=== PATIENT | female | born 2000 | race Caucasian/White ===

== ENCOUNTER 2022-02-27 10:02 | Emergency (ER) | payer OTHER, SELFPAY ==
[2022-02-27 10:08] VITALS: BP 112/63; PULSE 80; RESP 16; TEMP 36.7; O2SAT 100
--- NOTE | 2022-02-27 10:48 | ED.EAR ---
HPI - Ear Problem General Chief complaint: Ear Stated complaint: Ear Problem Source: patient Mode of arrival: ambulatory Limitations: no limitations History of Present Illness HPI Narrative: Presents for evaluation of bilateral ear pain. She states eight days ago she had a fever and generally was not feeling well. She went to [facility] seven days ago and tested positive for COVID. She states that she had not received COVID vaccination. She developed bilateral ear pain two days ago and has noted a small amount of sanguinous drainage from the left ear. Denies tinnitus, hearing loss. She states she had recurrent ear infections in childhood and had tympanostomy tubes placed. She states she has a left sided TM perforation. She states her symptoms associated with COVID are improving. No additional complaints or concerns. Related Data Allergies Allergy/AdvReac Type Severity Reaction Status Date / Time Penicillins Allergy Unknown MOTHER Verified 02/27/22 10:25 DOESN'T REMEMBER Review of Systems Review of Systems: CONSTITUTIONAL: Denies fever, chills, or sweats. EYES: Denies visual changes, redness, or discharge. ENT: Reports bilateral otalgia, left greater than right. Reports small amount of sanguinous drainage from left ear. Denies rhinorrhea, congestion, sore throat CARDIOVASCULAR: Denies chest pain, palpitations, or edema. RESPIRATORY: Reports occasional cough. Denies dyspnea. GASTROINTESTINAL: Denies abdominal pain, nausea, vomiting, or diarrhea. GENITOURINARY: Denies dysuria or hematuria. SKIN: Denies rash or itching. MUSCULOSKELETAL: Denies back pain, joint pain, or myalgia. NEUROLOGIC: Denies headache, numbness, dizziness, or weakness. PSYCHIATRIC: Denies anxiety or depression. [facility] Past Medical History Medical History Recurrent otitis media Surgical History Surgical History History of tympanostomy tube placement Family History Family History Mother Asthma Depression Heart disease Sibling Asthma Depression Grandparent Depression Cancer Grandparent Diabetes mellitus Social History Social History Alcohol intake: never Substance use: current Substance use type: marijuana Additional living arrangements comments: Lives with boyfriend and his familt Gender identity (if verbalized by the patient): Female Sexual Orientation (if Verbalized by the Patient): Straight or Heterosexual Spiritual care concerns: No Exam Narrative: GENERAL: Well-appearing, well-nourished, and in no acute distress. HEAD: Normocephalic, atraumatic. EYES: PERRLA and EOMI. ENT: Nares clear, no rhinorrhea or epistaxis. Mucous membranes moist. Oropharynx without tonsillar hypertrophy exudate or other lesions. Scarring noted to the right TM. Left TM is perforated with small amount of serous drainage noted NECK: Supple. No adenopathy or masses. No carotid bruits or JVD CHEST: Clear to auscultation. Cough present on exam. No respiratory distress. No wheezes rales or rhonchi HEART: Regular rate and rhythm. No murmur heard. Normal peripheral pulses. ABDOMEN: Soft, nontender, nondistended, normal active bowel sounds. EXTREMITIES: Normal range of motion. No edema. SKIN: Warm, dry, no rash. NEURO: No focal deficits. Alert and oriented x3. PSYCH: Normal mood and affect. Course Course Emergency Course: This is a 21-year-old female who present with complaints of bilateral ear pain and drainage from left ear. She has a tympanic membrane perforation on the left. Drainage is consistent with otitis media. Will tx Oral abx. She is allergic to amoxicillin so will tx with doxy. Patient agreement with plan of care. Advised otic gtts, which she declined. elmer
== END 2022-02-27 10:59 | disposition home or self-care (01) ==
PROVIDERS: Emergency Provider Nurse Practitioner; PCP Pediatrics Adolescent Medicine
DX: H66.92 Otitis media, unspecified, left ear (principal); U07.1 COVID-19; F12.90 Cannabis use, unspecified, uncomplicated
CPT/HCPCS: 99213; G0463

== ENCOUNTER 2023-01-20 21:15 | Emergency (ER) | payer OTHER, SELFPAY ==
--- NOTE | ~2023-01-20 | XR_ITS ---
EXAMINATION: XR ankle RT min 3V INDICATION: Right ankle pain TECHNIQUE: Four views of the right ankle are obtained. COMPARISON: None available FINDINGS: No fracture, dislocation, or subluxation. The bones and joint spaces are normal. There is m ild lateral soft tissue swelling of the ankle. IMPRESSION: 1. Soft tissue swelling without acute osseous abnormality. Reviewed, dictated and finalized at location A.
[2023-01-20 21:25] VITALS: BP 135/75; PULSE 98; RESP 14; TEMP 36.5; O2SAT 100
--- NOTE | 2023-01-20 22:36 | ED.LOWEXIN ---
HPI - Extremity Injury (Lower) General Chief Complaint: Extremity Injury, Lower Stated Complaint: R ankle Time Seen by Provider: 01/20/23 22:20 History of Present Illness HPI Narrative: Patient is a 22-year-old female here for evaluation of pain to her right Achilles x1 day. Patient states that she recently got a job working for [employer] and she has been on her feet more than usual. She describes a soreness in her Achilles tendon and also on the dorsal aspect of her foot. No trauma to the foot. She has not attempted any medicine for her pain. No numbness or tingling, difficulty moving the toes. Related Data Home Medications Medication Instructions Recorded Confirmed No Home Medications 04/11/22 01/01/23 Allergies Allergy/AdvReac Type Severity Reaction Status Date / Time Penicillins Allergy Unknown MOTHER Verified 01/20/23 22:02 DOESN'T REMEMBER Review of Systems Review of Systems: Gen.: Denies fevers or chills Eyes: Denies eye pain or visual change ENT: Denies congestion Respiratory: Denies shortness of breath or cough CV: Denies chest pain or palpitations GI: Denies abdominal pain nausea, emesis or diarrhea denies burning, urgency, frequency or hematuria Musculoskeletal: Reports pain in the foot Neuro: Denies numbness, tingling, weakness or focal weakness Skin: Denies rash Except as documented, all other systems reviewed and negative [facility] Past Medical History Medical History Recurrent otitis media Surgical History Surgical History History of tympanostomy tube placement Family History Family History Mother Asthma Depression Heart disease Sibling Asthma Depression Grandparent Depression Cancer Grandparent Diabetes mellitus Social History Social History (Updated 01/01/23 @ 11:54 by Selena Leiva CMA) Smoking status: Never smoker Alcohol intake: never Substance use: current Substance use type: marijuana Lack of Transportation: No Lack of Food: Never True Current Housing: I Have Housing Concerned About Future Housing: No Additional living arrangements comments: Lives with boyfriend and his familt Gender identity (if verbalized by the patient): Female Sexual Orientation (if Verbalized by the Patient): Straight or Heterosexual Spiritual care concerns: No Exam Narrative: Gen: Alert, oriented, no acute distress Eyes: EOMI, no icterus Pulm: Respirations even and unlabored, symmetric thorax expansion, no audible stridor or visible cyanosis CV: 2+ DP and PT pulses bilaterally. GI: No distension, no voluntary/involuntary guarding Neuro: AOx4, moves all extremities without apparent difficulty or weakness, follows commands MSK: Achilles tendon intact to right and left feet. Negative daigle test on the right. There is no bony tenderness to palpation along the foot. Full Range of motion of the toes. Skin: No jaundice, no visible bruising, rashes, lesions or wounds on exposed skin Psych: Normal mood/affect, insight/judgement good, adequate fund of knowledge, recent/remote memory intact Course Vital Signs Vital signs: Vital Signs Temperature 97.7 F 01/20/23 21:25 Pulse Rate 98 01/20/23 21:25 Respiratory Rate 14 01/20/23 21:25 Blood Pressure 135/75 01/20/23 21:25 Pulse Oximetry 100 01/20/23 21:25 Oxygen Delivery Room Air 01/20/23 21:25 Temperature 97.7 F 01/20/23 21:25 Pulse Rate 98 01/20/23 21:25 Respiratory Rate 14 01/20/23 21:25 Blood Pressure 135/75 01/20/23 21:25 Pulse Oximetry 100 01/20/23 21:25 Oxygen Delivery Room Air 01/20/23 21:25 MDM - Extremity Injury (Lower) MDM Narrative Medical decision making narrative: 22-year-old female here for evaluation of pain to her Achilles tendon for the past
== END 2023-01-20 22:48 | disposition home or self-care (01) ==
PROVIDERS: Emergency Provider Physician Assistant
DX: M76.61 Achilles tendinitis, right leg (principal)
CPT/HCPCS: 73610; 99283

== ENCOUNTER 2023-01-26 11:27 | Emergency (ER) | payer OTHER, SELFPAY ==
--- NOTE | ~2023-01-26 | XR_ITS ---
Right ankle Technique: AP and lateral views were obtained. Clinical History: Pain Findings: No acute fracture or dislocation is seen. Osseous alignment is anatomic. Ankle mortise and other visualized joint spaces are preserved. Soft tissues are otherwise unremarkable. Impression: Unremarkable right ankle. Reviewed, dictated and finalized at location . Impression: Unremarkable right ankle.
--- NOTE | ~2023-01-26 | XR_ITS ---
Right foot Technique: AP and lateral views were obtained. Clinical History: Pain Findings: No acute fracture or dislocation is seen. Osseous alignment is anatomic. Joint spaces are p reserved without erosive or degenerative change. Soft tissues are unremarkable. Impression: Unremarkable right foot radiographs. Reviewed, dictated and finalized at [facility]. Impression: Unremarkable right foot radiographs.
[2023-01-26 12:05] VITALS: BP 149/69; PULSE 75; RESP 18; TEMP 36.9; O2SAT 100
--- NOTE | 2023-01-26 13:36 | ED.LOWEXIN ---
HPI - Extremity Injury (Lower) General Chief Complaint: Extremity Injury, Lower Stated Complaint: R ankle pain Time Seen by Provider: 01/26/23 12:16 History of Present Illness HPI Narrative: 22-year-old female reports for evaluation of right Achilles tendon pain, pain to her posterior medial and lateral malleolus x10 days. Patient states 10 days ago, she stepped off of a truck and inverted her ankle, since then has had pain. She was evaluated in this emergency department 01/20 and was diagnosed with Achilles tendinitis with negative x-rays. Per the ED note, she was advised to follow-up with an orthopedic surgeon if pain continues. Patient reports today for persistent pain. States she is able to ambulate with a limp. Has been taking ibuprofen with some relief. Denies paresthesias Related Data Home Medications Medication Instructions Recorded Confirmed No Home Medications 04/11/22 01/01/23 Allergies Allergy/AdvReac Type Severity Reaction Status Date / Time Penicillins Allergy Unknown MOTHER Verified 01/26/23 13:02 DOESN'T REMEMBER amoxicillin Allergy Swelling Verified 01/26/23 13:02 Review of Systems Review of Systems: CONSTITUTIONAL: Denies fever, chills EYES: Denies visual changes, redness, or discharge. ENT: Denies rhinorrhea, congestion, sore throat, or otalgia. CARDIOVASCULAR: Denies chest pain, palpitations, or edema. RESPIRATORY: Denies cough or dyspnea. GASTROINTESTINAL: Denies abdominal pain, nausea, vomiting, or diarrhea. GENITOURINARY: Denies dysuria or hematuria. SKIN: Denies rash or itching. MUSCULOSKELETAL: See HPI NEUROLOGIC: Denies headache, numbness, dizziness, or weakness. PSYCHIATRIC: Denies anxiety or depression. [facility] Past Medical History Medical History Recurrent otitis media Surgical History Surgical History History of tympanostomy tube placement Family History Family History Mother Asthma Depression Heart disease Sibling Asthma Depression Grandparent Depression Cancer Grandparent Diabetes mellitus Social History Social History Smoking status: Never smoker Alcohol intake: never Substance use: current Substance use type: marijuana Lack of Transportation: No Lack of Food: Never True Current Housing: I Have Housing Concerned About Future Housing: No Additional living arrangements comments: Lives with boyfriend and his familt Gender identity (if verbalized by the patient): Female Sexual Orientation (if Verbalized by the Patient): Straight or Heterosexual Spiritual care concerns: No Exam Narrative: GENERAL: Well-appearing, well-nourished, and in no acute distress. HEAD: Normocephalic, atraumatic. NECK: Supple. CHEST: Clear to auscultation. No respiratory distress. No wheezes rales or rhonchi HEART: Regular rate and rhythm. No murmur heard. Normal peripheral pulses. EXTREMITIES: Tenderness to the right distal Achilles tendon, posterior medial and lateral malleolus, and navicular bone. Negative Ruff test. No overlying ecchymosis or edema. Full range of motion of toes and ankle. DP pulse 2+. Sensation intact. Cap refill less than 2. SKIN: Warm, dry, no rash. NEURO: No focal deficits. Alert and oriented x3. PSYCH: Normal mood and affect. Course Vital Signs Vital signs: Vital Signs Temperature 98.5 F 01/26/23 12:05 Pulse Rate 75 01/26/23 12:05 Respiratory Rate 18 01/26/23 12:05 Blood Pressure 149/69 H 01/26/23 12:05 Pulse Oximetry 100 01/26/23 12:05 Oxygen Delivery Room Air 01/26/23 12:05 Temperature 98.5 F 01/26/23 12:05 Pulse Rate 75 01/26/23 12:05 Respiratory Rate 18 01/26/23 12:05 Blood Pressure 149/69 H 01/26/23 12:05 Pulse Oximetry 100
[2023-01-26] MEDS: ACETAMINOPHEN 500 MG TABLET 1000 MG PO (13:53)
[2023-01-26] MEDS: IBUPROFEN 600 MG TABLET PO (15:06)
== END 2023-01-26 15:12 | disposition home or self-care (01) ==
PROVIDERS: Emergency Provider Physician Assistant
DX: M76.61 Achilles tendinitis, right leg (principal)
CPT/HCPCS: 73600; 73620; 81025; 99283; A9270

== ENCOUNTER 2023-08-10 15:50 | Emergency (ER) | payer OTHER, SELFPAY ==
[2023-08-10 15:57] VITALS: BP 133/7; PULSE 84; RESP 15; TEMP 36.4; O2SAT 100
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
== END 2023-08-10 18:17 | disposition home or self-care (01) ==
PROVIDERS: Emergency Provider Emergency Medicine
DX: S16.1XXA Strain of muscle, fascia and tendon at neck level, initial encounter (principal); V89.2XXA Person injured in unspecified motor-vehicle accident, traffic, initial encounter
CPT/HCPCS: 99283

== ENCOUNTER 2024-11-01 11:24 | Emergency (ER) | payer MEDICAID, SELFPAY ==
--- NOTE | ~2024-11-01 | US_ITS ---
EXAMINATION: US OB <= 14 weeks fetus INDICATION: ab pain, early TECHNIQUE: Sonography of the pelvis was performed by transabdominal techniques. Patient declined mendenhall svaginal examination. COMPARISON: None. RESULT: Uterus: 7.9 x 4.2 x 4.9 cm. Anteverted. Homogenous myometrium. Intrauterine gestational sac: Single present. Mean Sac Diameter: 1.8 cm, corresponding gestational age 6 week 5 days. Yolk sac: Not visualized . Embryo: Not seen. Subgestational hematoma: Absent . Right ovary: 2.3 x 1.3 x 2.2 cm. Vascular flow is present. No adnexal mass. Left ovary: 1.9 x 1.0 x 1.9 cm. Vascular flow is present. No adnexal mass. Pelvis free fluid: None. IMPRESSION: Intrauterine gestation of uncertain viability, in this transabdominal only pelvic ultrasound examinat ion. Recommend sonographic follow-up in 7-10 days. Estimated Gestational Age: 6 weeks, 5 days by mean gestational sac diameter. CLARICE by ultrasound 2024. Reviewed, dictated and finalized at location K. LESS OPERATOR IMPRESSION: Intrauterine gestation of uncertain viability, in this transabdominal only pelv ic ultrasound examination. Recommend sonographic follow-up in 7-10 days. Estimated Gestational Age: 6 weeks, 5 days by mean gestational sac diameter. E DD by ultrasound 06/22/2025.
--- NOTE | 2024-11-01 11:26 | ECG_ITS ---
Test Date: 2024-11-01 11:44:31 Measurements Intervals Holden Rate: 80 P: 51 UT: 158 QRS: 53 QRSD: 86 T: 17 QT: 338 QTc: 392 Interpretive Statements SINUS RHYTHM POSSIBLE LEFT ATRIAL ENLARGEMENT INCOMPLETE RIGHT BUNDLE BRANCH BLOCK BASELINE ARTIFACT- I, II, III, AVR, AVL, AVF, V1-V6 BORDERLINE ECG No previous ECG available for comparison Electronically Signed On 11-01-2024 18:24:00 SENIOR MOBILE SOLUTIONS ARCHITECT by Benjamin Cadena D.O.
--- OUTSIDE RECORDS SUMMARY | 2024-11-01 11:26 | XMS_ITS | Clinical Summary ---
Author Organization [facility] Address [address] [place] [address] Care Team Providers Care Director Product Development Name Role Phone Beatrice Cho MD Primary Care Provider [phone] Source Comments [facility],non-owned Affiliates and Associated Physician Practices is amultiple site organization consisting of ambulatory clinics and hospital sitesin [place], [place], [place] and [place]. This disclosure is being madepursuant to the Care Everywhere program and may not contain all information available regarding this patient. Last updated 18.[facility] Allergies Active Allergy Reactions Criticality Noted Date Comments Amoxicillin 06/19/2017 Medications * Be aware that medications may not be up to date on this document. Alwaysverify current medications with the patient. Medication Sig Dispensed Refills Start Date End Date Status ibuprofen (MOTRIN) 600 MG tablet Take 600 mg by mouth every 6 hours as needed for Pain Active albuterol HFA (PROVENTIL;VENTOLIN; PROAIR) 108 (90 BASE) MCG/ACT inhalerIndications:A cute bronchitis, unspecified organism Inhale 2 puffs by mouth every 4 hours as needed for Wheezing 1 Inhaler 12/15/2017 Active benzonatate (TESSALON) 100 MG capsuleIndications:C ough Take 1 capsule by mouth 3 times daily as needed for Cough Reasons: Cough 30 capsule 12/15/2017 Active Active Problems Problem Noted Date Diagnosed Date Chronic headache 06/18/2017 Social History Tobacco Use Types Packs/Day Years Used Date Smoking Tobacco: Never Smokeless Tobacco: Never Sex and Gender Information Value Date Recorded Sex Assigned at Not on file Gender Identity Not on file Sexual Orientation Not on file Last Filed Vital Signs Vital Sign Reading Time Taken Comments Blood Pressure 102/66 12/15/2017 3:54 PM CDT Pulse 103 12/15/2017 3:54 PM CDT Temperature 36.9 ??C (98.4 ??F) 12/15/2017 3:54 PM CD T Respiratory Rate 16 12/15/2017 3:54 PM CDT Oxygen Saturation 96% 12/15/2017 3:54 PM CDT Inhaled Oxygen Concentration - - Weight 72.6 kg (160 lb) 12/15/2017 3:54 PM CDT Height 157.5 cm (5' 2 ) 12/15/2017 3:54 PM CDT Body Mass Index 29.26 12/15/2017 3:54 PM CDT Plan of Treatment Health Maintenance Due Date Last Done Comments PAP SMEAR 2000 HIV SCREENING 2015 HPV VACCINE (1 - 3-dose series) 2015 CHLAMYDIA/GONORRHEA SCREENING 2016 MENINGOCOCCAL (Group B) VACC INE (1 of 2 - Standard) 2016 HEPATITIS C SCREENING 11/01/2018 DTAP/TDAP/TD VACCINES (1 - Tdap) 2019 HEPATITIS B VACCINE (1 of 3 - 19+ 3-dose series) 2019 COVID-19 VACCINE (1 - 2023-2 5 season) 2024 INFLUENZA VACCINE (#1) 2024 DEPRESSION SCREENING 10/01/2024 ZOSTER VACCINE (1 of 2) 2050 HIB VACCINE Aged Out No longer eligi ble based on patient's age to complete this topic MENINGOCOCCAL VACCINE Aged Out No connie preethi eligible based on patient's age to complete this topic PNEUMOCOCCAL VACCINE Aged Out No long er eligible based on patient's age to complete this topic Care Teams Director Product Development Relationship Specialty Start Date End Date Beatrice Cho MD [address] [place] [id number] PCP - General Pediatrics 05/15/17
--- OUTSIDE RECORDS SUMMARY | 2024-11-01 11:26 | XMS_ITS | Referral Summary ---
Author Organization [facility] Address [address] [place] [address] Care Team Providers Care Science Specialist Name Role Phone Beatrice Cho MD Primary Care Provider [phone] Source Comments [facility],non-owned Affiliates and Associated Physician Practices is amultiple site organization consisting of ambulatory clinics and hospital sitesin [place], [place], [place] and [place]. This disclosure is being madepursuant to the Care Everywhere program and may not contain all information available regarding this patient. Last updated 18.[facility] Allergies Active Allergy Reactions Criticality Noted Date [...] 12/15/2017 3:54 PM CDT Plan of Treatment Not on file Care Teams Science Specialist Relationship Specialty Start Date End Date Beatrice Cho MD [address] [place] [id number] PCP - General Pediatrics 05/15/17
--- OUTSIDE RECORDS SUMMARY | 2024-11-01 11:26 | XMS_ITS | Referral Summary ---
Author Organization [facility] Address [address] [place] [address] Care Team Providers Care Woodworker Name Role Phone Beatrice Cho MD Unavailable [phone] Unknown, Notinfile Primary Care Provider Unavail able Encounters Date Type Department Care Team Description 10/28/2024 3:30 PM [facility] Office Visit [facility] at [address] [address] Toan Sánchez NP COVID-19 (Primary Dx) from Last 3 Months Allergies Active Allergy Reactions Criticality Noted Date Comments Amoxicillin Rash Medium 06/19/2017 Medications ketoconazole (NIZORAL) 2 % shampooIndicati ons:Pityriasis versicolor Apply topically 2 (two) times a week Apply to damp skin, lather, leave on 5 minutes, and rinse 120 mL 6 0 Active Additional Information Patient not taking.Reported on 10/28/2024 ketoconazole (NIZORAL) 2 % creamIndication s:Pityriasis versicolor Use twice a day on chest and thighs 60 g 6 0 Active Additional Information Patient not taking.Reported on 10/28/2024 ondansetron (ZOFRAN) 4 mg tabletIndicatio ns:COVID-19 Take 1 tablet (4 mg total) by mouth every 8 (eight) hours as needed for nausea or vomiting 20 tablet 2 Active Additional Information Patient not taking.Reported on 10/28/2024 Active Problems Problem Noted Date Diagnosed Date Chronic headache 06/18/2017 Comments Yes Social History Tobacco Use Types Packs/Day Years Used Date Smoking Tobacco: Never Smokeless Tobacco: Never Alcohol Use Standard Drinks/Week Comments Yes 0 (1 standard drink = 0.6 oz pur e alcohol) Comments Yes Sex and Gender Information Value Date Recorded Sex Assigned at Not on file Legal Sex Female 1:07 PM CDT Gender Identity Not on file Sexual Orientation Not on file Last Filed Vital Signs Vital Sign Reading Time Taken Comments Blood Pressure 113/70 10/28/2024 3:31 PM [facility] Pulse 86 10/28/2024 3:31 PM [facility] [employer] [facility] Temperature 37.1 ??C (98.8 ??F) 10/28/2024 3:31 PM CS T Respiratory Rate 18 10/28/2024 3:31 PM [facility] Oxygen Saturation 98% 10/28/2024 3:31 PM [facility] [employer] [facility] [facility] Inhaled Oxygen Concentration - - Weight 82.4 kg (181 lb 9.6 oz) 10/28/2024 3:31 P M [facility] [employer] [facility] Height 157.5 cm (5' 2.01 ) 10/28/2024 3:31 PM CS T Body Mass Index 33.21 10/28/2024 3:31 PM [facility] [employer] [facility] Plan of Treatment Not on file Procedures Procedure Name Priority Date/Time Associated Diagnosis Comments POC INFLUENZA A/B, COVID-19 ANTIGEN Routine 10/28/2024 3:56 PM [facility] COVID-19 from Last 3 Months Results * (ABNORMAL) POC Influenza A/B, COVID-19 antigen (10/28/2024 3:56 PM [facility]) Influenza A Ag, POC Negative Negative [facility] Influenza B Ag, POC Negative Negative [facility] COVID-19 Ag POC Positive(A) Presumptive Negative, Invalid [facility] Nasopharyngeal 10/28/2024 3: 56 PM [facility] [employer] [facility] us Toan Sánchez NP POINT OF CARE TEST ORDERABLES F inal Result [facility] [address] [place] [address], [facility] from Last 3 Months Additional Health Concerns Infection Onset Date Last Indicated COVID19 10/28/2024 10/28/2024 Insurance IDPA Care Teams Woodworker Relationship Specialty Start Date End Date Unknown, Notinfile PCP - General 10/28/24 Beatrice Cho MD 05/14/17
--- OUTSIDE RECORDS SUMMARY | 2024-11-01 11:26 | XMS_ITS | Patient Health Summary ---
Author Organization [facility] [employer] Address [address] [place] [address] Care Team Providers Care Geospatial Program Management Officer Name Role Phone Beatrice Cho MD Primary Care Provider Note from [facility],non-owned Affiliates and Associated Physician Practices is amultiple site organization consisting of ambulatory clinics and hospital sitesin [place], [place], [place] and [place]. This disclosure is being madepursuant to the Care Everywhere program and may not contain all information available regarding this patient. Last updated 18.[facility] Allergies * Amoxicillin Medications * Be aware that medications may not be up to date on this document. Alwaysverify current medications with the patient. * ibuprofen (MOTRIN) 600 MG tablet Take 600 mg by mouth every 6 hours as needed for Pain * albuterol HFA (PROVENTIL;VENTOLIN;PROAIR) 108 (90 BASE) MCG/ACT inhaler (Started 12/15/2017) Inhale 2 puffs by mouth every 4 hours as needed for Wheezing * benzonatate (TESSALON) 100 MG capsule(Started 12/15/2017) Take 1 capsule by mouth 3 times daily as needed for Cough Reasons: Cough Active Problems Problem Noted Date Diagnosed Date [...] Mass Index 29.26 12/15/2017 3:54 PM CDT Procedures * STREP A SCREEN - POINT OF CARE (AMB) STL(Performed 12/15/2017) Performed for Acute bronchitis, unspecified organism Results * STREP A SCREEN (12/15/2017) Strep A Rapid POCT Negative Negative Strep A Internal Control Present Lot # [id number] Expiration Date 06/21/19 Throat ENTIRE THROAT (SURFACE REGION OF NECK) / Unknown 12/15/2017 Gely Romero GOVERNMENT TEACHER-SEWAGE PLANT ATTENDANT LAB - POINT OF CA RE ORDERABLES Care Teams Geospatial Program Management Officer Relationship Specialty Start Date End Date Beatrice Cho MD [address] [place] [address] PCP - General Pediatrics 05/15/17
--- OUTSIDE RECORDS SUMMARY | 2024-11-01 11:26 | XMS_ITS | Clinical Summary ---
Author Organization [facility] Address [address] [place] [address] Care Team Providers Care Corporate Travel Coordinator Name Role Phone Beatrice Cho MD Unavailable [phone] Unknown, Notinfile Primary Care Provider Unavail able Allergies Active Allergy Reactions Criticality Noted Date [...] Diagnosed Date Chronic headache 06/18/2017 Comments Yes Encounters Date Type Department Care Team Description 10/28/2024 3:30 PM COMPUTER SYSTEM SPECIALIST Office Visit [facility] at [address] [id number] Toan Sánchez NP COVID-19 (Primary Dx) from Last 3 Months Surgical History Surgery Date Site/Laterality Comments TONSILLECTOMY Family History Medical History Relation Name Comments No Known Problems Father No Known Problems Mother Relation Name Status Comments Father Alive Mother Alive Social History Tobacco Use Types Packs/Day Years Used Date Smoking Tobacco: Never Smokeless Tobacco: Never Alcohol Use Standard Drinks/Week Comments Yes 0 (1 standard drink = 0.6 oz pur e alcohol) Comments Yes Sex and Gender Information Value Date Recorded Sex Assigned at Not on file Legal Sex Female 1:07 PM CDT Gender Identity Not on file Sexual Orientation Not on file Obstetrics History Para Term AB IAB SAB Ectopic Multiple Livin g Live Births 1 Date Outcome GA Total Labor Labor/2nd/3rd Weight Sex Type Anes PTL Masha A1 A5 Name Clin Current Last Filed Vital Signs Vital Sign Reading Time Taken Comments Blood Pressure 113/70 10/28/2024 3:31 PM COMPUTER SYSTEM SPECIALIST Pulse 86 10/28/2024 3:31 PM COMPUTER SYSTEM SPECIALIST Temperature 37.1 ??C (98.8 ??F) 10/28/2024 3:31 PM CS T Respiratory Rate 18 10/28/2024 3:31 PM COMPUTER SYSTEM SPECIALIST Oxygen Saturation 98% 10/28/2024 3:31 PM COMPUTER SYSTEM SPECIALIST Inhaled Oxygen Concentration - - Weight 82.4 kg (181 lb 9.6 oz) 10/28/2024 3:31 P M COMPUTER SYSTEM SPECIALIST Height 157.5 cm (5' 2.01 ) 10/28/2024 3:31 PM CS T Body Mass Index 33.21 10/28/2024 3:31 PM COMPUTER SYSTEM SPECIALIST Plan of Treatment Health Maintenance Due Date Last Done Comments Cervical Cancer Screening 2000 Depression Screening 2000 Hepatitis C Screening 2000 Meningococcal B Vaccine (2 o f 2 - Risk Trumenba 2-dose series) 10/31/2018 04/30/2018 Regular Well Visit/Exam 18-64 2018 DTaP/Tdap/Td Vaccine (7 - Td or Tdap) 07/13/2022 07/13/2012, 02/12/2006, 05/06/2002, Additional history exists Influenza Vaccine (#1) 2024 07/16/2015, 2004 Pneumococcal vaccine <65 Completed 002, 05/29/2001, 03/26/2001, Additional history exists Varicella Vaccines Completed 07/13/2012, 11/14/2001 HPV Vaccines Completed 07/16/2015, 05/2015, 01/04/2015 Procedures Procedure Name Priority Date/Time Associated Diagnosis Comments POC INFLUENZA A/B, COVID-19 ANTIGEN Routine 10/28/2024 3:56 PM COMPUTER SYSTEM SPECIALIST COVID-19 from Last 3 Months Results * (ABNORMAL) POC Influenza A/B, COVID-19 antigen (10/28/2024 3:56 PM COMPUTER SYSTEM SPECIALIST) Influenza A Ag, POC Negative Negative [facility] Influenza B Ag, POC Negative Negative [facility] COVID-19 Ag POC Positive(A) Presumptive Negative, Invalid [facility] Nasopharyngeal 10/28/2024 3: 56 PM COMPUTER SYSTEM SPECIALIST us Toan Sánchez NP POINT OF CARE TEST ORDERABLES F inal Result Performing Organization Address City/State/[facility] Co de Phone Number [facility] [address] [place] [address], [facility] from Last 3 Months Additional Health Concerns Infection Onset Date Last Indicated COVID19 10/28/2024 10/28/2024 Insurance [facility] IDPA Care Teams Corporate Travel Coordinator Relationship Specialty Start Date End Date Unknown, Notinfile PCP - General 10/28/24 Beatrice Cho MD 05/14/17
[2024-11-01 11:39] VITALS: BP 118/67; PULSE 94; RESP 20; TEMP 36.4; O2SAT 100
--- OUTSIDE RECORDS SUMMARY | 2024-11-01 11:56 | XMS_ITS | Referral Summary ---
Author Organization [facility] Address [address] [address] [facility] [place] [address] Care Team Providers Care Parent Coach Name Role Phone Beatrice Cho MD Primary Care Provider Source Comments [facility],non-owned Affiliates and Associated Physician Practices is amultiple site organization consisting of ambulatory clinics and hospital sitesin [place], [place], [place] and [place]. This disclosure is being madepursuant to the Care Everywhere program and may not contain all information available regarding this patient. Last updated 18.[facility] Allergies Active Allergy Reactions Criticality Noted Date [...] of Treatment Not on file Care Teams Parent Coach Relationship Specialty Start Date End Date Beatrice Cho MD [address] [place] [id number] PCP - General Pediatrics 05/15/17
--- OUTSIDE RECORDS SUMMARY | 2024-11-01 11:56 | XMS_ITS | Clinical Summary ---
Author Organization [facility] [employer] Address [address] [place] [address] Care Team Providers Care Software Engineering Manager Name Role Phone Beatrice Cho MD Primary Care Provider Source Comments [facility],non-owned Affiliates and Associated Physician Practices is amultiple site organization consisting of ambulatory clinics and hospital sitesin [place], [place], [place] and [place]. This disclosure is being madepursuant to the Care Everywhere program and may not contain all information available regarding this patient. Last updated 18.[facility] Allergies Active Allergy Reactions Criticality Noted Date [...] age to complete this topic Care Teams Software Engineering Manager Relationship Specialty Start Date End Date Beatrice Cho MD [address] [place] [id number] PCP - General Pediatrics 05/15/17
--- OUTSIDE RECORDS SUMMARY | 2024-11-01 11:56 | XMS_ITS | Patient Health Summary ---
Author Organization [facility] [employer] Address [address] [place] [address] Care Team Providers Care Conventions Assistant Name Role Phone Beatrice Cho MD Primary Care Provider [phone] Note [address] [facility],non-owned Affiliates and Associated Physician Practices is amultiple site organization consisting of ambulatory clinics and hospital sitesin [place], [place], [place] and [place]. This disclosure is being madepursuant to the Care Everywhere program and may not contain all information available regarding this patient. Last updated 18.[facility] Allergies * Amoxicillin Medications * Be aware [...] Strep A Internal Control Present Lot # [id number] Expiration Date 06/21/19 Throat ENTIRE THROAT (SURFACE REGION OF NECK) / Unknown 12/15/2017 Gely Romero GREASER HELPER-COMMERCIAL DECORATOR LAB - POINT OF CA RE ORDERABLES Care Teams Conventions Assistant Relationship Specialty Start Date End Date Beatrice Cho MD [address] [place] [address] PCP - General Pediatrics 05/15/17
[2024-11-01 12:01] VITALS: BP 122/62; PULSE 85; RESP 14; O2SAT 100
--- NOTE | 2024-11-01 12:39 | ED_ITS ---
HPI - General Adult General Chief complaint: Upper Respiratory Infection Stated complaint: COVID + PREG, CHEST PAIN Time Seen by Provider: 11/01/24 11:45 History of Present Illness HPI narrative: 23-year-old female presents to the emergency department for evaluation for abdominal pain. Patient did have a positive COVID test on Sunday. Patient did have a positive home test but has not yet had knee follow-up. Patient presents to ED complaining epigastric pain with associated nausea and vomiting. Patient also states she is having abdominal pain because she is hungry but is unable to keep anything down. Patient did smell like cannabis at time of evaluation patient does admit to using cannabis. Patient was unaware of cannabinoid hyperemesis syndrome. Related Data Allergies Allergy/AdvReac Type Severity Reaction Status Date / Time Penicillins Allergy Unknown MOTHER Verified 11/01/24 11:25 DOESN'T REMEMBER amoxicillin Allergy Swelling Verified 11/01/24 11:25 Review of Systems 2 Review of Systems: All systems reviewed & are unremarkable except as noted in HPI and below PMFSH Past Medical History Medical History Recurrent otitis media Surgical History Surgical History History of tympanostomy tube placement Family History Family History Mother Asthma Depression Heart disease Sibling Asthma Depression Grandparent Depression Cancer Grandparent Diabetes mellitus Social History Social History Smoking status: Never smoker Alcohol intake: never Substance use: current Substance use type: marijuana Lack of Transportation: No Lack of Food: Never True Current Housing: I Have Housing Concerned About Future Housing: No Additional living arrangements comments: Lives with boyfriend and his familt Gender identity (if verbalized by the patient): Female Sexual Orientation (if Verbalized by the Patient): Straight or Heterosexual Spiritual care concerns: No Exam 2 Narrative: APPEARANCE: Anxious appearing HEAD: normocephalic, atraumatic. EYES: PERRLA/EOMI, conjunctivae clear. NOSE: Normal no drainage EARS:TMS clear with good light reflex. THROAT: Pharynx clear, no exudate. NECK: Supple. No adenopathy, no masses. RESPIRATORY: Airway patent, respirations nonlabored. Clear to auscultation bilaterally, no rales, rhonchi, wheezing. CARDIOVASCULAR: Regular rate and rhythm without murmurs rubs or gallops. ABDOMINAL: No abdominal tenderness to palpation MUSCULOSKELETAL: Moves all extremities. Strength/ROM intact, No edema, No calf tenderness. NEURO: Alert. Cranial nerves II through XII intact. Grossly intact SKIN: Warm, dry. Normal Color Course Vital Signs Vital signs: Vital Signs Temperature 97.5 F L 11/01/24 11:39 Pulse Rate 94 11/01/24 11:39 Respiratory Rate 20 11/01/24 11:39 Blood Pressure 118/67 11/01/24 11:39 Pulse Oximetry 100 11/01/24 11:39 Oxygen Delivery Room Air 11/01/24 11:39 Temperature 98.5 F 11/01/24 17:02 Pulse Rate 79 11/01/24 17:02 Respiratory Rate 16 11/01/24 17:02 Blood Pressure 135/64 11/01/24 17:02 Pulse Oximetry 98 11/01/24 17:02 Oxygen Delivery Room Air 11/01/24 12:02 Medical Decision Making [facility] Narrative Medical decision making narrative: 23-year-old female presented emergency department for evaluation for nausea and vomiting in early . Patient was afebrile but does have a leukocytosis of 11.8 and hemoglobin of 15.1. Patient has no significant abnormalities on her CMP UA was cloudy with +3 ketones but patient was treated with IV fluids. Patient did have +2 bacteria in her urine with no other evidence of urinary tract infection. Urine culture was ordered. Ultrasound does show a intrauterine gestational sac up approximately 6 weeks and 5 days. Patient family updated on the results of workup and importance of having close follow-up with her OB Gyne, Dr. Genao. Differential Diagnosis Differential Diagnosis: Ectopic , urinary tract infection, cannabinoid hyperemesis syndrome, hyperemesis gravidarum Vital Signs Vital Signs: Vital Signs Temperature 97.5 F L 11/01/24 11:39 Pulse Rate 94 11/01/24 11:39 Respiratory Rate 20 11/01/24 11:39 Blood Pressure 118/67 11/01/24 11:39 Pulse Oximetry 100 11/01/24 11:39 Oxygen Delivery Room Air 11/01/24 11:39 Temperature 98.5 F 11/01/24 17:02 Pulse Rate 79 11/01/24 17:02 Respiratory Rate 16 11/01/24 17:02 Blood Pressure 135/64 11/01/24 17:02 Pulse Oximetry 98 11/01/24 17:02 Oxygen Delivery Room Air 11/01/24 12:02 Lab Data Lab results reviewed: Yes I reviewed the patient's lab results. 11/01/24 12:48 11/01/24 12:48 Labs: Lab Results 11/01/24 11/01/24 11/01/24 Range/Units 12:48 12:48 12:48 WBC 11.8 H (4.5-10.0) K/mm3 RBC 5.26 (4.2-5.4) M/mm3 Hgb 15.1 H (12.0-15.0) g/dL Hct 44.0 (37.0-47.0) % MCV 83.7 (80-100) fl MCH 28.7 (26-34) pg MCHC 34.3 (32-36) g/dl RDW 12.9 (11.5-14.5) % Plt Count 264 (150-375) k/mm3 MPV 10.1 (7.4-10.4) fl Immature Gran % (Auto) 0.7 H (0-0.5) % Neut % (Auto) 65.3 (45.5-73.1) % Lymph % (Auto) 24.0 (18.3-44.2) % Bacon % (Auto) 8.3 (2.6-8.5) % Eos % (Auto) 1.2 (0-4.4) % Baso % (Auto) 0.5 (0.2-1.2) % Lymph # (Auto) 2.84 (0.9-3.2) K/mm3 Bacon # (Auto) 1.0 H (0.1-0.6) K/mm3 Eos # (Auto) 0.1 (0-0.3) K/mm3 Baso # (Auto) 0.1 (0.0-0.1) K/mm3 Abs Immat Gran (auto) 0.08 H (0.00-0.031) K/mm3 Absolute Neuts (auto) 7.7 H (1.3-6.7) K/mm3 Absolute Nucleated RBC 0.000 (0.0-0.012) K/mm3 Nucleated RBC % 0.0 (0.0-0.2) % Sodium 137 Cancelled (137-145) mmol/L Potassium 4.1 Cancelled (3.4-5.0) mmol/L Chloride 105 (98-107) mmol/L Carbon Dioxide (22-30) mmol/L Anion Gap (4-12) mmol/L BUN (7-17) mg/dL Creatinine (0.7-1.0) mg/dL Estim Creat Clear Calc ml/min Estimated GFR (59 - ) Glucose (65-110) mg/dL Calcium (8.4-10.2) mg/dL Total Bilirubin (0.2-1.3) mg/dL AST (14-36) U/L ALT (6-35) U/L Alkaline Phosphatase (38-126) U/L Total Protein (6.3-8.2) g/dL Albumin (3.5-5.1) g/dL Beta HCG, Quant mIU/ML Urine Color (Yellow) Urine Appearance (Clear) Urine pH (5.0-9.0) Ur Specific [place] (1.001-1.035) Urine Protein (Negative) mg/dL Urine Glucose (UA) (Negative) mg/dL Urine Ketones (Negative) mg/dL Ur Blood (Man) (Negative) Urine Nitrate (Negative) Urine Bilirubin (Negative) Urine Urobilinogen (<2.0) mg/dL Leukocyte Esterase Rfl (Negative) [place]/UL Urine RBC (0-2) /hpf Urine WBC (0-3) /hpf Ur Squamous Epith Cells (Few) /hpf Urine Bacteria /hpf Urine Casts 11/01/24 11/01/24 11/01/24 Range/Units 12:48 12:48 12:48 WBC (4.5-10.0) K/mm3 RBC (4.2-5.4) M/mm3 Hgb (12.0-15.0) g/dL Hct (37.0-47.0) % MCV (80-100) fl MCH (26-34) pg MCHC (32-36) g/dl RDW (11.5-14.5) % Plt Count (150-375) k/mm3 MPV (7.4-10.4) fl Immature Gran % (Auto) (0-0.5) % Neut % (Auto) (45.5-73.1) % Lymph % (Auto) (18.3-44.2) % Bacon % (Auto) (2.6-8.5) % Eos % (Auto) (0-4.4) % Baso % (Auto) (0.2-1.2) % Lymph # (Auto) (0.9-3.2) K/mm3 Bacon # (Auto) (0.1-0.6) K/mm3 Eos # (Auto) (0-0.3) K/mm3 Baso # (Auto) (0.0-0.1) K/mm3 Abs Immat Gran (auto) (0.00-0.031) K/mm3 Absolute Neuts (auto) (1.3-6.7) K/mm3 Absolute Nucleated RBC (0.0-0.012) K/mm3 Nucleated RBC % (0.0-0.2) % Sodium (137-145) mmol/L Potassium (3.4-5.0) mmol/L Chloride Cancelled (98-107) mmol/L Carbon Dioxide 21 L Cancelled (22-30) mmol/L Anion Gap 11 Cancelled (4-12) mmol/L BUN 12 (7-17) mg/dL Creatinine (0.7-1.0) mg/dL Estim Creat Clear Calc ml/min Estimated GFR (59 - ) Glucose (65-110) mg/dL Calcium (8.4-10.2) mg/dL Total Bilirubin (0.2-1.3) mg/dL AST (14-36) U/L ALT (6-35) U/L Alkaline Phosphatase (38-126) U/L Total Protein (6.3-8.2) g/dL Albumin (3.5-5.1) g/dL Beta HCG, Quant mIU/ML Urine Color (Yellow) Urine Appearance (Clear) Urine pH (5.0-9.0) Ur Specific [place] (1.001-1.035) Urine Protein (Negative) mg/dL Urine Glucose (UA) (Negative) mg/dL Urine Ketones (Negative) mg/dL Ur Blood (Man) (Negative) Urine Nitrate (Negative) Urine Bilirubin (Negative) Urine Urobilinogen (<2.0) mg/dL Leukocyte Esterase Rfl (Negative) [place]/UL Urine RBC (0-2) /hpf Urine WBC (0-3) /hpf Ur Squamous Epith Cells (Few) /hpf Urine Bacteria /hpf Urine Casts 11/01/24 11/01/24 11/01/24 Range/Units 12:48 12:48 12:48 WBC (4.5-10.0) K/mm3 RBC (4.2-5.4) M/mm3 Hgb (12.0-15.0) g/dL Hct (37.0-47.0) % MCV (80-100) fl MCH (26-34) pg MCHC (32-36) g/dl RDW (11.5-14.5) % Plt Count (150-375) k/mm3 MPV (7.4-10.4) fl Immature Gran % (Auto) (0-0.5) % Neut % (Auto) (45.5-73.1) % Lymph % (Auto) (18.3-44.2) % Bacon % (Auto) (2.6-8.5) % Eos % (Auto) (0-4.4) % Baso % (Auto) (0.2-1.2) % Lymph # (Auto) (0.9-3.2) K/mm3 Bacon # (Auto) (0.1-0.6) K/mm3 Eos # (Auto) (0-0.3) K/mm3 Baso # (Auto) (0.0-0.1) K/mm3 Abs Immat Gran (auto) (0.00-0.031) K/mm3 Absolute Neuts (auto) (1.3-6.7) K/mm3 Absolute Nucleated RBC (0.0-0.012) K/mm3 Nucleated RBC % (0.0-0.2) % Sodium (137-145) mmol/L Potassium (3.4-5.0) mmol/L Chloride (98-107) mmol/L Carbon Dioxide (22-30) mmol/L Anion Gap (4-12) mmol/L BUN Cancelled (7-17) mg/dL Creatinine 0.46 L Cancelled (0.7-1.0) mg/dL Estim Creat Clear Calc 155 Cancelled ml/min Estimated GFR > 60 (59 - ) Glucose (65-110) mg/dL Calcium (8.4-10.2) mg/dL Total Bilirubin (0.2-1.3) mg/dL AST (14-36) U/L ALT (6-35) U/L Alkaline Phosphatase (38-126) U/L Total Protein (6.3-8.2) g/dL Albumin (3.5-5.1) g/dL Beta HCG, Quant mIU/ML Urine Color (Yellow) Urine Appearance (Clear) Urine pH (5.0-9.0) Ur Specific [place] (1.001-1.035) Urine Protein (Negative) mg/dL Urine Glucose (UA) (Negative) mg/dL Urine Ketones (Negative) mg/dL Ur Blood (Man) (Negative) Urine Nitrate (Negative) Urine Bilirubin (Negative) Urine Urobilinogen (<2.0) mg/dL Leukocyte Esterase Rfl (Negative) [place]/UL Urine RBC (0-2) /hpf Urine WBC (0-3) /hpf Ur Squamous Epith Cells (Few) /hpf Urine Bacteria /hpf Urine Casts 11/01/24 11/01/24 11/01/24 Range/Units 12:48 12:48 12:48 WBC (4.5-10.0) K/mm3 RBC (4.2-5.4) M/mm3 Hgb (12.0-15.0) g/dL Hct (37.0-47.0) % MCV (80-100) fl MCH (26-34) pg MCHC (32-36) g/dl RDW (11.5-14.5) % Plt Count (150-375) k/mm3 MPV (7.4-10.4) fl Immature Gran % (Auto) (0-0.5) % Neut % (Auto) (45.5-73.1) % Lymph % (Auto) (18.3-44.2) % Bacon % (Auto) (2.6-8.5) % Eos % (Auto) (0-4.4) % Baso % (Auto) (0.2-1.2) % Lymph # (Auto) (0.9-3.2) K/mm3 Bacon # (Auto) (0.1-0.6) K/mm3 Eos # (Auto) (0-0.3) K/mm3 Baso # (Auto) (0.0-0.1) K/mm3 Abs Immat Gran (auto) (0.00-0.031) K/mm3 Absolute Neuts (auto) (1.3-6.7) K/mm3 Absolute Nucleated RBC (0.0-0.012) K/mm3 Nucleated RBC % (0.0-0.2) % Sodium (137-145) mmol/L Potassium (3.4-5.0) mmol/L Chloride (98-107) mmol/L Carbon Dioxide (22-30) mmol/L Anion Gap (4-12) mmol/L BUN (7-17) mg/dL Creatinine (0.7-1.0) mg/dL Estim Creat Clear Calc ml/min Estimated GFR Cancelled (59 - ) Glucose 86 Cancelled (65-110) mg/dL Calcium 10.6 H Cancelled (8.4-10.2) mg/dL Total Bilirubin 0.9 (0.2-1.3) mg/dL AST (14-36) U/L ALT (6-35) U/L Alkaline Phosphatase (38-126) U/L Total Protein (6.3-8.2) g/dL Albumin (3.5-5.1) g/dL Beta HCG, Quant mIU/ML Urine Color (Yellow) Urine Appearance (Clear) Urine pH (5.0-9.0) Ur Specific [place] (1.001-1.035) Urine Protein (Negative) mg/dL Urine Glucose (UA) (Negative) mg/dL Urine Ketones (Negative) mg/dL Ur Blood (Man) (Negative) Urine Nitrate (Negative) Urine Bilirubin (Negative) Urine Urobilinogen (<2.0) mg/dL Leukocyte Esterase Rfl (Negative) [place]/UL Urine RBC (0-2) /hpf Urine WBC (0-3) /hpf Ur Squamous Epith Cells (Few) /hpf Urine Bacteria /hpf Urine Casts 11/01/24 11/01/24 11/01/24 Range/Units 12:48 12:48 12:48 WBC (4.5-10.0) K/mm3 RBC (4.2-5.4) M/mm3 Hgb (12.0-15.0) g/dL Hct (37.0-47.0) % MCV (80-100) fl MCH (26-34) pg MCHC (32-36) g/dl RDW (11.5-14.5) % Plt Count (150-375) k/mm3 MPV (7.4-10.4) fl Immature Gran % (Auto) (0-0.5) % Neut % (Auto) (45.5-73.1) % Lymph % (Auto) (18.3-44.2) % Bacon % (Auto) (2.6-8.5) % Eos % (Auto) (0-4.4) % Baso % (Auto) (0.2-1.2) % Lymph # (Auto) (0.9-3.2) K/mm3 Bacon # (Auto) (0.1-0.6) K/mm3 Eos # (Auto) (0-0.3) K/mm3 Baso # (Auto) (0.0-0.1) K/mm3 Abs Immat Gran (auto) (0.00-0.031) K/mm3 Absolute Neuts (auto) (1.3-6.7) K/mm3 Absolute Nucleated RBC (0.0-0.012) K/mm3 Nucleated RBC % (0.0-0.2) % Sodium (137-145) mmol/L Potassium (3.4-5.0) mmol/L Chloride (98-107) mmol/L Carbon Dioxide (22-30) mmol/L Anion Gap (4-12) mmol/L BUN (7-17) mg/dL Creatinine (0.7-1.0) mg/dL Estim Creat Clear Calc ml/min Estimated GFR (59 - ) Glucose (65-110) mg/dL Calcium (8.4-10.2) mg/dL Total Bilirubin Cancelled (0.2-1.3) mg/dL AST 29 Cancelled (14-36) U/L ALT 28 Cancelled (6-35) U/L Alkaline Phosphatase 62 (38-126) U/L Total Protein (6.3-8.2) g/dL Albumin (3.5-5.1) g/dL Beta HCG, Quant mIU/ML Urine Color (Yellow) Urine Appearance (Clear) Urine pH (5.0-9.0) Ur Specific [place] (1.001-1.035) Urine Protein (Negative) mg/dL Urine Glucose (UA) (Negative) mg/dL Urine Ketones (Negative) mg/dL Ur Blood (Man) (Negative) Urine Nitrate (Negative) Urine Bilirubin (Negative) Urine Urobilinogen (<2.0) mg/dL Leukocyte Esterase Rfl (Negative) [place]/UL Urine RBC (0-2) /hpf Urine WBC (0-3) /hpf Ur Squamous Epith Cells (Few) /hpf Urine Bacteria /hpf Urine Casts 11/01/24 11/01/24 11/01/24 Range/Units 12:48 12:48 12:48 WBC (4.5-10.0) K/mm3 RBC (4.2-5.4) M/mm3 Hgb (12.0-15.0) g/dL Hct (37.0-47.0) % MCV (80-100) fl MCH (26-34) pg MCHC (32-36) g/dl RDW (11.5-14.5) % Plt Count (150-375) k/mm3 MPV (7.4-10.4) fl Immature Gran % (Auto) (0-0.5) % Neut % (Auto) (45.5-73.1) % Lymph % (Auto) (18.3-44.2) % Bacon % (Auto) (2.6-8.5) % Eos % (Auto) (0-4.4) % Baso % (Auto) (0.2-1.2) % Lymph # (Auto) (0.9-3.2) K/mm3 [place] # (Auto) (0.1-0.6) K/mm3 Eos # (Auto) (0-0.3) K/mm3 Baso # (Auto) (0.0-0.1) K/mm3 Abs Immat Gran (auto) (0.00-0.031) K/mm3 Absolute Neuts (auto) (1.3-6.7) K/mm3 Absolute Nucleated RBC (0.0-0.012) K/mm3 Nucleated RBC % (0.0-0.2) % Sodium (137-145) mmol/L Potassium (3.4-5.0) mmol/L Chloride (98-107) mmol/L Carbon Dioxide (22-30) mmol/L Anion Gap (4-12) mmol/L BUN (7-17) mg/dL Creatinine (0.7-1.0) mg/dL Estim Creat Clear Calc ml/min Estimated GFR (59 - ) Glucose (65-110) mg/dL Calcium (8.4-10.2) mg/dL Total Bilirubin (0.2-1.3) mg/dL AST (14-36) U/L ALT (6-35) U/L Alkaline Phosphatase Cancelled (38-126) U/L Total Protein 8.0 Cancelled (6.3-8.2) g/dL Albumin 4.6 Cancelled (3.5-5.1) g/dL Beta HCG, Quant 14919.00 mIU/ML Urine Color (Yellow) Urine Appearance (Clear) Urine pH (5.0-9.0) Ur Specific [place] (1.001-1.035) Urine Protein (Negative) mg/dL Urine Glucose (UA) (Negative) mg/dL Urine Ketones (Negative) mg/dL Ur Blood (Man) (Negative) Urine Nitrate (Negative) Urine Bilirubin (Negative) Urine Urobilinogen (<2.0) mg/dL Leukocyte Esterase Rfl (Negative) [place]/UL Urine RBC (0-2) /hpf Urine WBC (0-3) /hpf Ur Squamous Epith Cells (Few) /hpf Urine Bacteria /hpf Urine Casts 11/01/24 Range/Units 16:00 WBC (4.5-10.0) K/mm3 RBC (4.2-5.4) M/mm3 Hgb (12.0-15.0) g/dL Hct (37.0-47.0) % MCV (80-100) fl MCH (26-34) pg MCHC (32-36) g/dl RDW (11.5-14.5) % Plt Count (150-375) k/mm3 MPV (7.4-10.4) fl Immature Gran % (Auto) (0-0.5) % Neut % (Auto) (45.5-73.1) % Lymph % (Auto) (18.3-44.2) % Bacon % (Auto) (2.6-8.5) % Eos % (Auto) (0-4.4) % Baso % (Auto) (0.2-1.2) % Lymph # (Auto) (0.9-3.2) K/mm3 [place] # (Auto) (0.1-0.6) K/mm3 Eos # (Auto) (0-0.3) K/mm3 Baso # (Auto) (0.0-0.1) K/mm3 Abs Immat Gran (auto) (0.00-0.031) K/mm3 Absolute Neuts (auto) (1.3-6.7) K/mm3 Absolute Nucleated RBC (0.0-0.012) K/mm3 Nucleated RBC % (0.0-0.2) % Sodium (137-145) mmol/L Potassium (3.4-5.0) mmol/L Chloride (98-107) mmol/L Carbon Dioxide (22-30) mmol/L Anion Gap (4-12) mmol/L BUN (7-17) mg/dL Creatinine (0.7-1.0) mg/dL Estim Creat Clear Calc ml/min Estimated GFR (59 - ) Glucose (65-110) mg/dL Calcium (8.4-10.2) mg/dL Total Bilirubin (0.2-1.3) mg/dL AST (14-36) U/L ALT (6-35) U/L Alkaline Phosphatase (38-126) U/L Total Protein (6.3-8.2) g/dL Albumin (3.5-5.1) g/dL Beta HCG, Quant mIU/ML Urine Color Dark yellow (Yellow) Urine Appearance Cloudy H (Clear) Urine pH 6.0 (5.0-9.0) Ur Specific [place] 1.031 (1.001-1.035) Urine Protein Trace (Negative) mg/dL Urine Glucose (UA) Negative (Negative) mg/dL Urine Ketones 3+ H (Negative) mg/dL Ur Blood (Man) Negative (Negative) Urine Nitrate Negative (Negative) Urine Bilirubin Negative (Negative) Urine Urobilinogen 1.0 (<2.0) mg/dL Leukocyte Esterase Rfl Negative (Negative) [place]/UL Urine RBC 0-2 (0-2) /hpf Urine WBC 0-5 (0-3) /hpf Ur Squamous Epith Cells Few (Few) /hpf Urine Bacteria 2+ H /hpf Urine Casts 3-5 Imaging Data Radiologist's impression: Impressions Ultrasound 11/01/24 15:24 IMPRESSION: Intrauterine gestation of uncertain viability, in this transabdominal only pelvic ultrasound examination. Recommend sonographic follow-up in 7-10 days. Estimated Gestational Age: 6 weeks, 5 days by mean gestational sac diameter. CLARICE by ultrasound 06/22/2025. Discharge Plan Discharge Clinical Impression: COVID, Nausea & vomiting, Patient Disposition: Home, Self-Care Condition: Stable Instructions: Antibiotic Form, Nausea and Vomiting in (ED), Clear Liquid Diet (ED), COVID-19 (Coronavirus Disease 2019) (ED) Additional Instructions: Zofran as needed for nausea control. Clear liquid diet for the next 1-3 days. Advance to a bland diet as tolerated. Continue have close follow-up with OB Gyne. If you have any worsening symptoms please call or return to the emergency department. Urine culture was ordered so you may receive a call in the next 24-48 hours to start antibiotics depending on the culture results. Continue to educate yourself on cannabinoid hyperemesis syndrome. Patient Language: Bengali Prescriptions: New ondansetron 4 mg tablet,disintegrating 4 mg PO Q8H PRN (Reason: nausea and vomiting) Qty: 14 0RF No Action cyclobenzaprine 10 mg tablet 10 mg PO HS PRN (Reason: muscle spasm) Qty: 14 0RF Follow-up/Referrals: Sue Genao MD [Physician] - UNKNOWN,DOCTOR [Primary Care Provider] -
[2024-11-01] MEDS: SODIUM CHLORIDE 0.9% IV 1,000 ML 999 ML IV CONT (12:45)
[2024-11-01 12:55] LABS: Basophils Absolute Auto 0.1 K/mm3 (0.0-0.1); Basophils Percent Auto 0.5 % (0.2-1.2); Eosinophils Absolute Auto 0.1 K/mm3 (0-0.3); Eosinophils Percent Auto 1.2 % (0-4.4); Hemoglobin 15.1 g/dL (12.0-15.0); Immature Granulocyte Absolute 0.08 K/mm3 (0.00-0.031); Immature Granulocyte Percent A 0.7 % (0-0.5); Lymphocytes Absolute Auto 2.84 K/mm3 (0.9-3.2); Mean Corpuscular HGB Conc 34.3 g/dl (32-36); Mean Corpuscular Hemoglobin 28.7 pg (26-34); Mean Corpuscular Volume 83.7 fl (80-100); Mean Platelet Volume 10.1 fl (7.4-10.4); Monocytes Percent Auto 8.3 % (2.6-8.5); Neutrophils Absolute Auto 7.7 K/mm3 (1.3-6.7); Neutrophils Percent Auto 65.3 % (45.5-73.1); Platelet Count Result 264 k/mm3 (150-375); Red Blood Count 5.26 M/mm3 (4.2-5.4); Red Cell Distribution Width 12.9 % (11.5-14.5); White Blood Count 11.8 K/mm3 (4.5-10.0)
[2024-11-01] MEDS: METOCLOPRAMIDE HCL INJ 10 MG/2 ML VIAL IV PUSH (13:00)
[2024-11-01] MEDS: FAMOTIDINE 20 MG/2 ML VIAL IV PUSH (13:00)
[2024-11-01] MEDS: PANTOPRAZOLE SODIUM IV 40 MG VIAL IV PUSH (13:00)
[2024-11-01 13:10] VITALS: BP 123/63; PULSE 90; RESP 19; O2SAT 100
[2024-11-01 13:16] VITALS: BP 119/66; PULSE 70; RESP 19; O2SAT 100
[2024-11-01 13:17] LABS: Alanine Aminotransferase 28 U/L (6-35); Albumin Level 4.6 g/dL (3.5-5.1); Alkaline Phosphatase 62 U/L (38-126); Anion Gap 11 mmol/L (4-12); Aspartate Amino Transferase 29 U/L (14-36); Bilirubin,Total 0.9 mg/dL (0.2-1.3); Blood Urea Nitrogen 12 mg/dL (7-17); Calcium 10.6 mg/dL (8.4-10.2); Carbon Dioxide 21 mmol/L (22-30); Chloride 105 mmol/L (98-107); Estimated CRCL calculation 155 ml/min; Estimated Glomerular Filt Rate > 60; Glucose 86 mg/dL (65-110); Potassium 4.1 mmol/L (3.4-5.0); Sodium 137 mmol/L (137-145)
[2024-11-01 16:12] LABS: Add Urine Microscopic? YES; Appearance Urine Cloudy (Clear); Bacteria Urine 2+ /hpf; Bilirubin Urine Negative (Negative); Blood Urine Negative (Negative); Color Urine Dark Yellow (Yellow); Glucose Urine UA Negative (Negative); Ketones Urine 3+ mg/dL (Negative); Leukocyte Esterase Ur Negative LEU/UL (Negative); Nitrate Urine Negative (Negative); Protein Urine Trace mg/dL (Negative); RBC Urine 0-2 /hpf (0-2); Specific Grav Ur 1.031 (1.001-1.035); Squamous Epithelial Cell Urine Few /hpf (Few); WBC Urine 0-5 /hpf (0-3)
[2024-11-01 17:02] VITALS: BP 135/64; PULSE 79; RESP 16; TEMP 36.9; O2SAT 98
== END 2024-11-01 17:04 | disposition home or self-care (01) ==
PROVIDERS: Emergency Provider Emergency Medicine
DX: O98.511 Other viral diseases complicating pregnancy, first trimester (principal); U07.1 COVID-19; O21.0 Mild hyperemesis gravidarum
CPT/HCPCS: 36415; 76801; 80053; 81001; 84702; 85025; 93005; 96361; 96374; 96375; 99284; J2470; J2765; J7030

== ENCOUNTER 2025-05-13 12:51 | Outpatient (CLI) | payer OTHER, SELFPAY ==
--- OUTSIDE RECORDS SUMMARY | 2025-05-13 12:54 | XMS_ITS | Clinical Summary ---
Author Organization [facility] ospital Address [address] [place] [address] Care Team Providers Care Logistics Management Specialist Name Role Phone Beatrice Cho MD Unavailable [phone] Unknown, Notinfile Primary Care Provider Unavail able Allergies Active Allergy Reactions Criticality Noted Date Comments Amoxicillin Rash Medium 06/19/2017 Medications ondansetron ODT (ZOFRAN-ODT) 8 mg disintegrating tablet 03/09/20 25 Active aspirin 81 mg enteric coated tablet Take 1 tablet (81 mg total) by mouth daily Active ferrous sulfate 325 mg (65 mg of elemental iron) tabletIndications: Iron Deficiency Anemia Take 1 tablet (65 mg of elemental iron total) by mouth 3 (three) times a day with meals Active ketoconazole (NIZORAL) 2 % shampooIndications :Pityriasis versicolor Apply topically 2 (two) times a week Apply to damp skin, lather, leave on 5 minutes, and rinse 120 mL 6 12/08/19 20 025 Discontinu ed(Patient Reported) ketoconazole (NIZORAL) 2 % creamIndications:P ityriasis versicolor Use twice a day on chest and thighs 60 g 6 12/08/19 20 025 Discontinu ed(Patient Reported) cyclobenzaprine (FLEXERIL) 5 mg tablet 1 tablet every 8 hours prn 02/04/20 25 025 Discontinu ed(Patient Reported) fluconazole (DIFLUCAN) 150 mg tablet Take 1 tablet (150 mg total) by mouth once for 1 dose Repeat in 7 days if symptoms persist. 2 tablet 04/15/20 25 025 Active Problems Problem Noted Date Diagnosed Date Elevated blood pressure affe cting in third trimester, antepartum 05/12/2025 Overview (05/12/2025): History Mild range blood pressure in clinic on 05/12/2025 to 146/92. This is the patient's first mild range BP. Asymptomatic in clinic other than persistent significant lower extremity swelling. Plan [] Given new mild range BP, recommend patient present to [facility] for preeclampsia labs, serial BP monitoring, and consideration for admission/delivery pending results [] If patient discharged, recommend close antepartum monitoring with consideration for home BP monitoring given high risk for gHTN/preeclampsia Assessment & Plan (05/12/2025 7:38 PM CDT): History Mild range blood pressure in clinic on 05/12/2025 to 146/92. This is the patient's first mild range BP. Asymptomatic in clinic other than persistent significant lower extremity swelling. Plan [] Given new mild range BP, recommend patient present to [facility] for preeclampsia labs, serial BP monitoring, and consideration for admission/delivery pending results [] If patient discharged, recommend close antepartum monitoring with consideration for home BP monitoring given high risk for gHTN/preeclampsia Yeast vaginitis 04/15/2025 Overview (04/15/2025): Reports white vaginal discharge with associated vulvar burning and itching. Vaginal pH normal, LETY prep with hyphae. Rx fluconazole 150 mg x 1, repeat in 7 days if still symptomatic. Assessment & Plan (04/15/2025 3:27 PM CDT): Reports white vaginal discharge with associated vulvar burning and itching. Vaginal pH normal, LETY prep with hyphae. Rx fluconazole 150 mg x 1, repeat in 7 days if still symptomatic. Supervision of high-risk , third trimes ter 03/10/2025 Overview (05/12/2025): [x] Full MFM Care; [] Red Team [x] Blue Team Referring Provider: Ashley Arnold [phone] [] or Medicare Insurance [x] Dating Criteria: [place] 12/03/24 with CL[facility]ICE 06/20/25 [x] Labs: Rh [A+], Ab [negative], Rubella [immune], HIV [non-reactive], HepBSAg [non-reactive], HepBSAb [non-reactive/non-immune], HepBCAb [non-immune], RPR [non-reactive], Hep C [non-reactive], Varicella [non-immune], GC/CT [negative/negative] [x] Aneuploidy Screening: NIPT low risk [x] Carrier Screening: CF negative, SMA negative, Alpha-Thalassemia negative, Sickle Cell/Beta-Thalassemia/Hemoglobinopathies negative [x] Hgb electrophoresis: normal pattern [x] CBC/Hgb: 13.6/40.6/plt 322 [x] Hgb Ac1 12/05/24: 5.1 [x] UCx: 12/05/24: no growth [] Pap: requested 03/10 [x] LD ASA (if indicated): indicated, taking [] EPDS [ ]; PNBHS referral (if indicated): 2nd Trimester [x] Anatomy ultrasound: normal [x] CBC/1hr gtt at 24-28wks: 03/04/25: 10.8/32.3, GTT 137, HIV [non-reactive], RPR [non-reactive] [x] Rhogam at 28 wks (if Rh neg): NA, A pos 3rd Trimester [x] CBC/HIV/RPR/T&S: 10.9/33.8/313, HIV NR, RPR NR [] GBS: collect in the [facility] 05/12/2025 [x] GC/CT (if indicated): NA [x] testing: Weekly at 32 weeks for MC/DA twins Counseling [x] MOD: anticipate vaginal, discussed IOL at 37 weeks- scheduled for 05/30 at 2000, letter sent [x] Place of delivery: [facility] [x] Epidural: desired unmedicated ; discussed epidural and patient accepts after consideration [x] Accepts Blood Products: yes, confirmed 04/28 [] Stop ASA: [x] MOC: undecided, considering natural family planning (has used previously) [x] Method of feeding: breast [x] Garment Sewer Hand (specifically which provider): Dr. Cindi Cantu with [facility] [] PP Depression Discussed: [] PP visits scheduled: Vaccines [x] Flu Shot (Jun-Aug): not in season [x] COVID vaccine: not in season [x] Tdap (27-36wks):03/31/2025 lr [x] RSV vaccine (32-36wks): not in season [x] PP HPV vaccine counseling (<=26 yo): s/p completed series Assessment & Plan (05/12/2025 7:41 PM CDT): care with MFM, up to date. Discussed delivery consideration given our recommendation for epidural to facilitate breech extraction if needed for delivery. She has thought this over and accepts epidural for labor/delivery. Given presentation to the [facility], recommend GBS collection. Patient is allergic to amoxicillin/penicillin, so recommend sensitivities. Assessment & Plan (04/28/2025 5:54 PM CDT): [x] Full MFM Care; [] Red Team [x] Blue Team Referring Provider: Ashley Arnold [phone] [] or Medicare Insurance [x] Dating Criteria: [place] 12/03/24 with CLARICE 06/20/25 [x] Labs: Rh [A+], Ab [negative], Rubella [immune], HIV [non-reactive], HepBSAg [non-reactive], HepBSAb [ordered 04/28/25], HepBCAb [ordered 04/28/25], RPR [non-reactive], Hep C [non-reactive], Varicella [ordered 04/28/25], GC/CT [negative/negative] [x] Aneuploidy Screening: NIPT low risk [x] Carrier Screening: CF negative, SMA negative, Alpha-Thalassemia negative, Sickle Cell/Beta-Thalassemia/Hemoglobinopathies negative [] Hgb electrophoresis: ordered 04/28/25 [x] CBC/Hgb: 13.6/40.6/plt 322 [x] Hgb Ac1 12/05/24: 5.1 [x] UCx: 3/7/25: no growth [] Pap: requested 03/10 [] LD ASA (if indicated): [] EPDS [ ]; PNBHS referral (if indicated): 2nd Trimester [x] Anatomy ultrasound: normal [x] CBC/1hr gtt at 24-28wks: 03/04/25: 10.8/32.3, GTT 137, HIV [non-reactive], RPR [non-reactive] [x] Rhogam at 28 wks (if Rh neg): NA, A pos 3rd Trimester [] CBC/HIV/RPR/T&S: ordered 04/28/25 [] GBS: [] GC/CT (if indicated): NA [x] testing: Weekly at 32 weeks for MC/DA twins Counseling [x] MOD: anticipate vaginal, discussed IOL at 37 weeks- scheduled for 05/30 at 1999, letter sent [x] Place of delivery: [facility] [] Epidural: desired unmedicated ; reviewed recommendation for epidural given twin 04/28 [x] Accepts Blood Products: yes, confirmed 04/28 [] Stop ASA: [x] MOC: undecided, considering natural family planning (has used previously) [x] Method of feeding: breast [x] Garment Sewer Hand (specifically which provider): Dr. Cnidi Cantu with [facility] [] PP Depression Discussed: [] PP visits scheduled: Vaccines [x] Flu Shot (Jun-Aug): not in season [x] COVID vaccine: not in season [x] Tdap (27-36wks):03/31/2025 lr [x] RSV vaccine (32-36wks): not in season [x] PP HPV vaccine counseling (<=26 yo): s/p completed series Assessment & Plan (04/15/2025 3:27 PM CDT): 2nd Trimester [x] Anatomy ultrasound: normal [x] CBC/1hr gtt at 24-28wks: 03/04/25: 10.8/32.3, GTT 137, HIV [non-reactive], RPR [non-reactive] [x] Rhogam at 28 wks (if Rh neg): NA, A pos 3rd Trimester [] CBC/HIV/RPR/T&S: [] GBS: [] GC/CT (if indicated): [x] testing: Weekly at 32 weeks for MC/DA twins Counseling [x] MOD: anticipate vaginal, discussed IOL at 37 weeks [] Place of delivery: [facility] [] Epidural: [] Accepts Blood Products: [] Stop ASA: [x] MOC: undecided, considering natural family planning (has used previously) [x] Method of feeding: breast Monochorionic diamniotic twin in third trimester 03/10/2025 Overview (05/12/2025): History Twin 2 with velamentous cord insertion and elevated UA dopplers Plan [x] ASA 81 mg at 12 weeks [x] Baseline preeclampsia labs - CBC, CMP, UPC - wnl, UPC 0.1 [] TTTS/TAPS screening 16-36 weeks every 2 weeks - ongoing [x] Specialized anatomy 20 weeks with TVCL [x] echocardiogram 20-22 weeks- normal for both twins [x] Serial growth ultrasounds every 4 weeks - complete [] Weekly testing at 32 weeks - ongoing [x] Delivery at [id number] ([id number] if otherwise uncomplicated) - scheduled for 05/30 at 8 PM [x] Discuss mode of delivery - desires vaginal delivery, MFM recommended epidural on 04/28 which patient accepts Assessment & Plan (05/12/2025 7:36 PM CDT): Ultrasound today notable for normal growths with Twin 1 at the 13% and Twin 2 at 11%. This is their last growth ultrasound for this . Twin 2 continues to have elevated UA dopplers at >99% but the growth is normal and there is persistent forward diastolic flow throughout the waveforms. No evidence of TTTS/TAPS. BPPs were 88 for both twins. Plan [x] ASA 81 mg at 12 weeks [x] Baseline preeclampsia labs - CBC, CMP, UPC - wnl, UPC 0.1 [] TTTS/TAPS screening 16-36 weeks every 2 weeks - ongoing [x] Specialized anatomy 20 weeks with TVCL [x] echocardiogram 20-22 weeks- normal for both twins [x] Serial growth ultrasounds every 4 weeks - now complete [] Weekly testing at 32 weeks - ongoing [x] Delivery at [id number] ([id number] if otherwise uncomplicated) - scheduled for 05/30 at 8 PM [x] Discuss mode of delivery - desires vaginal delivery, [facility] recommended epidural on 04/28 which patient accepts Assessment & Plan (04/28/2025 5:52 PM CDT): Ultrasound today notable for continued elevated UA Dopplers of Twin 2 but with normal growth most recently 04/15/25. No evidence of TTTS/TAPS. We discussed today that mode of delivery with twin gestations depends on twin presentation, gestational age and delivery clinician experience (breech vaginal delivery, internal podalic version, total breech extraction). Mode of delivery will be determined by crimper operator experience along with informed patient consent. We reviewed that since both of her babies are vertex it would be reasonable to offer vaginal delivery. We reviewed that neuraxial anesthesia is recommended to facilitate internal interventions (external or internal cephalic version, total breech extraction) as well as operative vaginal delivery or emergent delivery if needed given twin ; Ms. Lora was considering an unmedicated so I encouraged her to consider this as my recommendation. Regardless of planned mode of delivery, twins are typically delivered in the operating room. Plan [x] ASA 81 mg at 12 weeks [x] Baseline preeclampsia labs - CBC, CMP, UPC - wnl, UPC 0.1 [] TTTS/TAPS screening 16-36 weeks every 2 weeks - ongoing [x] Specialized anatomy 20 weeks with TVCL [x] echocardiogram 20-22 weeks- normal for both twins [] Serial growth ultrasounds every 4 weeks - ongoing [] Weekly testing at 32 weeks - ongoing [x] Delivery at [id number] ([id number] if otherwise uncomplicated) - scheduled for 05/30 at 8 PM [] Discuss mode of delivery - desires vaginal delivery, [facility] recommended epidural on 04/28 - for further discussion as patient was considering unmedicated Assessment & Plan (04/15/2025 3:26 PM CDT): Plan: [x] ASA 81 mg at 12 weeks [x] Baseline preeclampsia labs - CBC, CMP, UPC [] TTTS/TAPS screening 16-36 weeks every 2 weeks- ongoing [x] Specialized anatomy 20 weeks with TVCL [x] echocardiogram 20-22 weeks- normal for both twins [] Serial growth ultrasounds every 4 weeks - ongoing [] Weekly testing at 32 weeks - scheduled [] Delivery at [id number] ([id number] if otherwise uncomplicated) Chronic headache 06/18/2017 Estimated Date of Delivery Comme nts Yes 06/20/2025 Based on Ultraso und Encounters Date Type Department Care Team Description 05/12/2025 4:30 PM CDT - 05/12/2025 7:30 PM CDT Hospital Encounter [address] [phone] Anai Harmon MD Zofkie, Amanda Christine, MD Discharge Disposition: Discharge to home or self care 05/12/2025 2:00 PM CDT Office Visit [facility] [address] [facility] [address] [place] [phone] Monochorionic diamniotic twin in third trimester (Primary Dx); Supervision of high-risk , third trimester; Elevated blood pressure affecting in third trimester, antepartum 05/12/2025 12:29 PM CDT - 05/12/2025 11:59 PM CDT Hospital Encounter [facility] [address] [facility] [address] [place] [phone] Supervision of high-risk , third trimester; Monochorionic diamniotic twin in third trimester Discharge Disposition: Discharge to home or self care 05/05/2025 9:50 AM CDT Lab [facility] Outpatient Lab [address] [place] [phone] Monochorionic diamniotic twin in third trimester; Supervision of high-risk , third trimester; Swelling of lower extremity during in third trimester 05/05/2025 9:00 AM CDT Clinical Support [facility] [address] [facility] [address] [place] [address] Monochorionic diamniotic twin in third trimester (Primary Dx); Supervision of high-risk , third trimester; Swelling of lower extremity during in third trimester 05/05/2025 Results Follow-Up [facility] [address] [place] [address] Dana Camejo MD Protein / creatinine ratio, urine, random, Comprehensive metabolic panel, CBC without differential, eGFR 04/28/2025 3:35 PM CDT Lab [facility] Outpatient Lab [address] [place] [address] Monochorionic diamniotic twin in third trimester; Supervision of high-risk , third trimester 04/28/2025 2:15 PM CDT Office Visit [facility] [address] [place] [phone] Monochorionic diamniotic twin in third trimester (Primary Dx); Supervision of high-risk , third trimester 04/28/2025 1:15 PM CDT - 04/28/2025 11:59 PM CDT Hospital Encounter [facility] [address] [place] [phone] Supervision of high-risk , third trimester; Monochorionic diamniotic twin in third trimester Discharge Disposition: Discharge to home or self care 04/15/2025 3:00 PM CDT Office Visit [facility] [address] [place] [phone] Supervision of high-risk , third trimester (Primary Dx); Monochorionic diamniotic twin in third trimester; Yeast vaginitis 04/15/2025 1:25 PM CDT - 04/15/2025 11:59 PM CDT Hospital Encounter [facility] [address] [place] [address] [place] [address] Supervision of high-risk , third trimester; Monochorionic diamniotic twin in third trimester Discharge Disposition: Discharge to home or self care 04/14/2025 12:30 PM CDT Office Visit [facility] Pediatric Cardiology [facility] 2nd Floor [address] [place] [address] Monochorionic diamniotic twin in third trimester (Primary Dx) 04/14/2025 12:18 PM CDT - 04/14/2025 11:59 PM CDT Hospital Encounter [facility] 2nd Floor [address] [place] [phone] Monochorionic diamniotic twin in third trimester; Supervision of high-risk , third trimester Discharge Disposition: Discharge to home or self care 04/14/2025 12:17 PM CDT - 04/14/2025 11:59 PM CDT Hospital Encounter [facility] Pediatric Cardiology [facility] 2nd Floor [address] [place] [address] Monochorionic diamniotic twin in third trimester; Supervision of high-risk , third trimester Discharge Disposition: Discharge to home or self care 03/31/2025 4:00 PM CDT Office Visit [facility] [address] [facility] Medical Office Building [address] [place] [phone] Supervision of high-risk , third trimester (Primary Dx); Monochorionic diamniotic twin in third trimester 03/31/2025 2:49 PM CDT - 03/31/2025 11:59 PM CDT Hospital Encounter [facility] [address] [facility] [address] [address] Supervision of high-risk , unspecified trimester; Monochorionic diamniotic twin in third trimester Discharge Disposition: Discharge to home or self care 03/16/2025 4:45 PM CDT Lab [facility] Outpatient Lab [address] [place] [address] Monochorionic diamniotic twin in third trimester; Supervision of high-risk , third trimester 03/16/2025 4:00 PM CDT Office Visit [facility] [address] [facility] Medical Office Building [address] [place] [phone] Monochorionic diamniotic twin in third trimester (Primary Dx); Supervision of high-risk , unspecified trimester; Supervision of high-risk , third trimester 03/16/2025 2:00 PM CDT - 03/16/2025 11:59 PM CDT Hospital Encounter [facility] [address] [facility] [address] [place] [address] Unspecified high-risk Discharge Disposition: Discharge to home or self care 03/16/2025 Orders Only [facility] [address] [place] [address] Outpatient Health 7th Floor [address] [place] [phone] Cindi Tanner RN Monochorionic diamniotic twin in third trimester (Primary Dx); Supervision of high-risk , third trimester 03/13/2025 Telephone [facility] [address] [place] [address] Outpatient Health 7th Floor [address] [place] [phone] Roma Barry RN 3hr gtt 03/10/2025 Telephone [facility] [address] [facility] Outpatient Health 7th Floor [address] [place] [phone] Tamara Guerra MD from Last 3 Months Immunizations Immunization Administration Dates Next Due DTaP 02/12/2006, 2,05/29/2001,03/26,01/22/2001 HPV, Quadrivalent 03/08/2015,01/04/2015 HPV9 07/16/2015 Hep A, Ped Unspecified 12/21/2004,10/28/2003 Hep B, Adolescent or Pediatric 08/06/2001,2000,2000 HiB 05/06/2002, 1,03/26/2001,01/22 IPV 12/21/2004, 2,03/26/2001,01/22 Influenza, Live, Intranasal, Quadrivalent 07/16/2015 Influenza, Unspecified 12/21/2004 MMR 02/27/2006,02/04/2002 Meningococcal B, Recombinant (Trumenba) 04/30/2018 Meningococcal MCV4P (Menactra) 04/30/2018,2016 Pneumococcal Conjugate 7-Valent 02/05/20 02,05/29/2001,03/26/2001,01/22 Tdap 03/31/2025,07/13/2012 Varicella 07/13/2012,11/14/2001 Surgical History Surgery Date Site/Laterality Comments TONSILLECTOMY MYRINGOTOMY W/ TUBES Medical History Medical History Date Comments Toxic shock syndrome (HCC) Family History Medical History Relation Name Comments No Known Problems Father No Known Problems Mother Relation Name Status Comments Father Alive Mother Alive Social History Tobacco Use Types Packs/Day Years Used Date Smoking Tobacco: Never Smokeless Tobacco: Never Tobacco Cessation:Counseling Given: Not Answered Alcohol Use Standard Drinks/Week Comments Yes 0 (1 standard drink = 0.6 oz pur e alcohol) AUDIT-C Answer Date Recorded Frequency of Alcohol Consumption Not on file 05/12/2025 Q2: How many drinks containi ng alcohol do you have on a typical day when you are drinking? Patient does not drink Frequency of Binge Drinking Not on file 05/01 Personal Safety Answer Date Recorded Have you ever been in or are you currently in a harmful physical or emotional relationship or is someone making you feel afraid or unsafe? Denies 05/12/2025 Estimated Date of Delivery Comme nts Yes 06/20/2025 Based on Ultraso und Sex and Gender Information Value Date Recorded Sex Assigned at Not on file Legal Sex Female 1:07 PM CDT Gender Identity Not on file Sexual Orientation Not on file Obstetrics History Para Term AB IAB SAB Ectopic Multiple Livin g Live Births 1 Date Outcome GA Total Labor Labor/2nd/3rd Weight Sex Type Anes PTL Masha A1 A5 Name Clin Current Summary Episode Dates Number of Fetuses Estimated Date of Delivery 03/10/2025 - Present (05/13/2025) 06/20/2025 (set by Terry Chin MD on 04/01/2025 based on Ultrasound on 12/03/2024) Dating Summary Based On [facility] [place] Diff Last Menstrual Period on 09/07/2024 (Exact Date) 06/14/2025 +6d Ultrasound on 12/03/2024 06/20/2025 Working GA:11w4d Alternate CLARICE Entry 06/06/2025 +2w0d Comment:Date entered prior t o episode creation Vitals Pregravid Weight Height TWG (As of 05/13/2025) Pregrav id BMI 160 cm (5' 3) Date GA Fund Present FHR Mvmt BP Weight Edema Alb Glu Ket Dil/ Eff/Sta 5 26w2d Inpatient data not displayed here. See encounter summary. 5 28w3d Inpatient data not displayed here. See encounter summary. 5 30w4d Inpatient data not displayed here. See encounter summary. 5 32w3d Inpatient data not displayed here. See encounter summary. 5 34w3d Inpatient data not displayed here. See encounter summary. 5 34w3d Inpatient data not displayed here. See encounter summary. Notes Progress Notes - Office Visi t - 05/12/2025 - GA:34w3d 05/12/2025 - 34w3d - Dana Camejo MD Images from the original note were not included. MFM Return Visit 05/12/2025 Harshal Lora is a 24 y.o. at 34w3d who is here for a return OB visit. Her is complicated by monochorionic-diamniotic twin . Subjective: She denies vaginal bleeding and leakage of fluid. She reports some irregular contractions but nothing that feels like labor; mostly experiences low in the abdomen. Denies headaches, vision changes, and RUQ pain. Denies chest pain. Has some SOB with activity that resolves with rest. Denies abnormal discharge or dysuria. Good movement. She continues to notice significant lower extremity swelling; this is her primary concern. She has been wearing compression socks and trying to keep her feet up. She continues to have carpal tunnel concerns. She is taking ASA. Objective: BP 146/92 Pulse 88 Temp 36.9 C (98.5 F) Resp 16 Ht 160 cm (5' 3) Wt 228 lb 12.8 oz (103.8 kg) LMP 09/07/2024 (Exact Date) SpO2 99% BMI 40.53 kg/m General: NAD Lungs: Normal work of breathing on room air Abdomen: Soft, gravid, NT Extremities: WWP, no edema Ultrasound 05/12/2025: Monochorionic diamniotic twin gestation at 34 weeks and 3 days. Twin 1: Vertex, low and to the left. growth is in the lower range of normal with EFW at the 13th percentile. Normal bladder filling and amniotic fluid volume is seen. Middle cerebral artery Doppler PSV measures within normal limits. Umbilical artery Doppler PI measures within normal limits. The biophysical profile is 8/8 with normal breathing motion, body motion, tone and amniotic fluid volume. Twin 2: Vertex right and high. growth is in the lower range of normal with EFW at the 11th percentile. Amniotic fluid volume is normal and normal bladder filling is seen. Umbilical artery Doppler PI is increased greater than the 99th percentile however with forward flow throughout all waveforms. Middle cerebral artery PSV measures within normal limits. The biophysical profile is 8/8 with normal breathing motion, body motion, tone and amniotic fluid volume. Assessment/Plan: Harshal Lora is a 24 y.o. at 34w3d with a complicated by monochorionic-diamniotic twin . Monochorionic diamniotic twin in third trimester Ultrasound today notable for normal growths with Twin 1 at the 13% and Twin 2 at 11%. This is their last growth ultrasound for this . Twin 2 continues to have elevated UA dopplers at >99% but the growth is normal and there is persistent forward diastolic flow throughout the waveforms. No evidence of TTTS/TAPS. BPPs were 8/8 for both twins. Plan [x] ASA 81 mg at 12 weeks [x] Baseline preeclampsia labs - CBC, CMP, UPC - wnl, UPC 0.1 [] TTTS/TAPS screening 16-36 weeks every 2 weeks - ongoing [x] Specialized anatomy 20 weeks with TVCL [x] echocardiogram 20-22 weeks- normal for both twins [x] Serial growth ultrasounds every 4 weeks - now complete [] Weekly testing at 32 weeks - ongoing [x] Delivery at [id number] ([id number] if otherwise uncomplicated) - scheduled for 05/30 at 8 PM [x] Discuss mode of delivery - desires vaginal delivery, MFM recommended epidural on 04/28 which patient accepts Elevated blood pressure affecting in third trimester, antepartum History Mild range blood pressure in clinic on 05/12/2025 to 146/92. This is the patient's first mild range BP. Asymptomatic in clinic other than persistent significant lower extremity swelling. Plan [] Given new mild range BP, recommend patient present to [facility] for preeclampsia labs, serial BP monitoring, and consideration for admission/delivery pending results [] If patient discharged, recommend close antepartum monitoring with consideration for home BP monitoring given high risk for gHTN/preeclampsia Supervision of high-risk , third trimester care with MFM, up to date. Discussed delivery consideration given our recommendation for epidural to facilitate breech extraction if needed for delivery. She has thought this over and accepts epidural for labor/delivery. Given presentation to the [facility], recommend GBS collection. Patient is allergic to amoxicillin/penicillin, so recommend sensitivities. If patient is discharged, continue weekly visits and surveillance with consideration of increasing frequency of surveillance given elevated BP. Dana Camejo MD Manager Infusion Division of Maternal- Medicine and Ultrasound Department of Obstetrics and Gynecology [facility] 05/12/2025 My total encounter time on 05/12/2025 was 35 minutes which was spent in the activities documented in the note. This includes time spent prior to the visit and after the visit in direct care of the patient. This time does not include time spent in any separately reportable services. Progress Notes - Clinical Cole pport - 05/05/2025 - GA:33w3d 05/05/2025 - 33w3d - Dana Camejo MD Images from the original note were not included. Patient with reported worsening swelling in her lower extremities, hands, and face. BP today normotensive. Patient notes limitations in activity due to worsening swelling. Exam with symmetric bilateral lower extremity pitting edema, 3+, to the knees. CBC/CMP/UPC ordered. Dana Camejo MD Manager Infusion Division of Maternal- Medicine and Ultrasound Department of Obstetrics and Gynecology [facility] 05/05/2025 ~~~~~~~~~~~~~~~~~~~~~~~~~~~~~~~~~~ Addendum: Preeclampsia labs normal. Dana Camejo MD Manager Infusion Division of Maternal- Medicine and Ultrasound Department of Obstetrics and Gynecology [facility] 05/05/2025 Progress Notes - Office Visi t - 04/28/2025 - GA:32w3d 04/28/2025 - 32w3d - Dana Camejo MD Images from the original note were not included. MFM Return Visit 04/28/2025 Harshal Lora is a 24 y.o. at 32w3d who is here for a return OB visit. Her is complicated by monochorionic-diamniotic twin . Subjective: She denies vaginal bleeding and leakage of fluid. She denies contractions. She has had some pressure in the lower aspect of her abdomen that started last week; just happens here and there. Denies headaches, vision changes, and RUQ pain. Denies dysuria. She has noticed more swelling in her feet and legs and has been having issues getting her swelling to go down. Standing makes the swelling worse. She also notes some numbness in both of her hands in the morning; usually it is her thumb and sometimes her pointer finger and sometimes her pinkie. Good movement. She reports taking ASA. She was diagnosed with a yeast infection last appointment and reports her symptoms have been much better since taking one dose of the fluconazole - she did not have to take the second pill. She is considering an unmedicated . She accepts blood products. 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 Objective: BP 119/81 Pulse 90 Temp 36.3 C (97.3 F) Resp 16 Ht 160 cm (5' 3) Wt 211 lb 9.6 oz (96 kg) LMP 09/07/2024 (Exact Date) SpO2 99% BMI 37.48 kg/m General: NAD Lungs: Normal work of breathing on room air Abdomen: Soft, gravid, NT Extremities: WWP, no edema Ultrasound 04/28/2025: Monochorionic diamniotic twin gestation at 32 weeks and 3 days. Twin 1 is vertex low and on the maternal left side. Twin 2 is vertex and high.BPP is are 8/8 for both twins. Amniotic fluid volume is normal for both twins. Middle cerebral artery PSV measures within normal limits for both twins. Umbilical artery Doppler PI is normal for twin 1 and increased to the 99th percentile for twin 2. No evidence of flnp-ei-byaa transfusion syndrome or TAPS. Assessment/Plan: Harshal Lora is a 24 y.o. at 32w3d with a complicated by monochorionic-diamniotic twin . Monochorionic diamniotic twin in third trimester Ultrasound today notable for continued elevated UA Dopplers of Twin 2 but with normal growth most recently 04/15/25. No evidence of TTTS/TAPS. We discussed today that mode of delivery with twin gestations depends on twin presentation, gestational age and delivery clinician experience (breech vaginal delivery, internal podalic version, total breech extraction). Mode of delivery will be determined by crimper operator experience along with informed patient consent. We reviewed that since both of her babies are vertex it would be reasonable to offer vaginal delivery. We reviewed that neuraxial anesthesia is recommended to facilitate internal interventions (external or internal cephalic version, total breech extraction) as well as operative vaginal delivery or emergent delivery if needed given twin ; Ms. Lora was considering an unmedicated so I encouraged her to consider this as my recommendation. Regardless of planned mode of delivery, twins are typically delivered in the operating room. Plan [x] ASA 81 mg at 12 weeks [x] Baseline preeclampsia labs - CBC, CMP, UPC - wnl, UPC 0.1 [] TTTS/TAPS screening 16-36 weeks every 2 weeks - ongoing [x] Specialized anatomy 20 weeks with TVCL [x] echocardiogram 20-22 weeks- normal for both twins [] Serial growth ultrasounds every 4 weeks - ongoing [] Weekly testing at 32 weeks - ongoing [x] Delivery at [id number] ([id number] if otherwise uncomplicated) - scheduled for 05/30 at 8 PM [] Discuss mode of delivery - desires vaginal delivery, M recommended epidural on 04/28 - for further discussion as patient was considering unmedicated Supervision of high-risk , third trimester [x] Full [facility] Care; [] Red Team [x] Blue Team Referring Provider: Ashley Arnold [phone] [] or Medicare Insurance [x] Dating Criteria: [place] 12/03/24 with LCARICE 06/20/25 [x] Labs: Rh [A+], Ab [negative], Rubella [immune], HIV [non-reactive], HepBSAg [non-reactive], HepBSAb [ordered 04/28/25], HepBCAb [ordered 04/28/25], RPR [non-reactive], Hep C [non-reactive], Varicella [ordered 04/28/25], GC/CT [negative/negative] [x] Aneuploidy Screening: NIPT low risk [x] Carrier Screening: CF negative, SMA negative, Alpha-Thalassemia negative, Sickle Cell/Beta-Thalassemia/Hemoglobinopathies negative [] Hgb electrophoresis: ordered 04/28/25 [x] CBC/Hgb: 13.6/40.6/plt 322 [x] Hgb Ac1 12/05/24: 5.1 [x] UCx: 12/05/24: no growth [] Pap: requested 03/10 [] LD ASA (if indicated): [] EPDS [ ]; PNBHS referral (if indicated): 2nd Trimester [x] Anatomy ultrasound: normal [x] CBC/1hr gtt at 24-28wks: 03/04/25: 10.8/32.3, GTT 137, HIV [non-reactive], RPR [non-reactive] [x] Rhogam at 28 wks (if Rh neg): NA, A pos 3rd Trimester [] CBC/HIV/RPR/T&S: ordered 04/28/25 [] GBS: [] GC/CT (if indicated): NA [x] testing: Weekly at 32 weeks for MC/DA twins Counseling [x] MOD: anticipate vaginal, discussed IOL at 37 weeks- scheduled for 05/30 at 2000, letter sent [x] Place of delivery: [facility] [] Epidural: desired unmedicated ; reviewed recommendation for epidural given twin 04/28 [x] Accepts Blood Products: yes, confirmed 04/28 [] Stop ASA: [x] MOC: undecided, considering natural family planning (has used previously) [x] Method of feeding: breast [x] Garment Sewer Hand (specifically which provider): Dr. Cindi Cantu with [facility] [] PP Depression Discussed: [] PP visits scheduled: Vaccines [x] Flu Shot (Jun-Aug): not in season [x] COVID vaccine: not in season [x] Tdap (27-36wks):03/31/2025 lr [x] RSV vaccine (32-36wks): not in season [x] PP HPV vaccine counseling (<=26 yo): s/p completed series Return to clinic in 2 weeks. Continue weekly surveillance in the meantime. Dana Camejo MD Manager Infusion Division of Maternal- Medicine and Ultrasound Department of Obstetrics and Gynecology [facility] 04/28/2025 My total encounter time on 04/28/2025 was 30 minutes which was spent in the activities documented in the note. This includes time spent prior to the visit and after the visit in direct care of the patient. This time does not include time spent in any separately reportable services. Progress Notes - Office Visi t - 04/15/2025 - GA:30w4d 04/15/2025 - 30w4d - Roxanne Frausto MD [facility] Return Visit 04/15/2025 Harshal Lora is a 24 y.o. at 30w4d by 1st trimester Ultrasound who is here for a return OB visit. Her is complicated by MC/DA twins. Subjective: She reports movement normal, no bleeding, no contractions, and no leaking. Increased vaginal discharge for the past week, white in color, associated with vulvar itching and burning. Objective: BP 127/70 Pulse 97 Temp 36.8 C (98.2 F) Ht 160 cm (5' 3) Wt 203 lb (92.1 kg) LMP 09/07/2024 (Exact Date) SpO2 99% BMI 35.96 kg/m General: NAD Abdomen: Soft, gravid, NT Extremities: WWP, no edema Pelvic: normal external genitalia with mild edema of labia minora and fine scale of clitoral palencia. Ultrasound: 04/15/2025 Mo/Di twin IUP at 30w 4d with elevated UA PI for Twin 2. 2. Twin 1 Vertex; Maternal left- low: There has been interval growth. EFW 22%. The DVP measures 4.9 cm. A normal bladder is seen. Doppler study of the umbilical vessels and cerebral artery show normal waveforms. The PSV in the MCA was recorded at 1.45 MoM. 3. Twin 2 Vertex; Maternal right- high: There has been interval growth. EFW 14% The DVP measures 6 cm. A normal bladder is seen. Doppler study of the umbilical artery is elevated. The middle cerebral artery show normal waveforms. The PSV in the MCA was recorded at 1.24 MoM. Assessment/Plan: Harshal Lora is a 24 y.o. at 30w4d by 1st trimester Ultrasound with a complicated by MC/DA twins. Monochorionic diamniotic twin in third trimester Plan: [x] ASA 81 mg at 12 weeks [x] Baseline preeclampsia labs - CBC, CMP, UPC [] TTTS/TAPS screening 16-36 weeks every 2 weeks- ongoing [x] Specialized anatomy 20 weeks with TVCL [x] echocardiogram 20-22 weeks- normal for both twins [] Serial growth ultrasounds every 4 weeks - ongoing [] Weekly testing at 32 weeks - scheduled [] Delivery at [id number] ([id number] if otherwise uncomplicated) Supervision of high-risk , third trimester 2nd Trimester [x] Anatomy ultrasound: normal [x] CBC/1hr gtt at 24-28wks: 03/04/25: 10.8/32.3, GTT 137, HIV [non-reactive], RPR [non-reactive] [x] Rhogam at 28 wks (if Rh neg): NA, A pos 3rd Trimester [] CBC/HIV/RPR/T&S: [] GBS: [] GC/CT (if indicated): [x] testing: Weekly at 32 weeks for MC/DA twins Counseling [x] MOD: anticipate vaginal, discussed IOL at 37 weeks [] Place of delivery: [facility] [] Epidural: [] Accepts Blood Products: [] Stop ASA: [x] MOC: undecided, considering natural family planning (has used previously) [x] Method of feeding: breast Yeast vaginitis Reports white vaginal discharge with associated vulvar burning and itching. Vaginal pH normal, LETY prep with hyphae. Rx fluconazole 150 mg x 1, repeat in 7 days if still symptomatic. Summary of visit: - Rx fluconazole for yeast vaginitis - Reviewed feeding plan and contraception. - Follow up 2 weeks for MFM visit and TTTS/TAPS ultrasound, begin weekly surveillance at that time. - Discussed no specific concerns regarding elevated UAD PI for twin 2 in the setting of normal growth. Roxanne Rose MD Sample Tester Grinder Division of Maternal- Medicine Progress Notes - Office Visi t - 03/31/2025 - GA:28w3d 03/31/2025 - - Anna Marie Kirk CMA Pt presented today for her TDAP vaccine dring her 30th week of . She received inj in her LD and she tolerated it well. L: [id number] Exp: 08/2026 03/31/2025 - 3d - Jhoana Chin MD [facility] Return Visit 03/31/2025 Harshal Lora is a 24 y.o. at 28w3d who is here for a return OB visit. Subjective: She reports good movement. NO ctx, LOF or bleeding. Occasional lower pelvic/back pain. Objective: BP 129/72 Pulse 86 Temp 36.8 C (98.2 F) Ht 160 cm (5' 2.99) Wt 194 lb (88 kg) LMP 09/07/2024 (Exact Date) SpO2 99% BMI 34.37 kg/m General: NAD Abdomen: Gravid Extremities: 2+ edema Ultrasound: 03/31/2025 Narrative & Impression IMPRESSION: Twin 1: vertex, maternal left and low, normal bladder and AF volumes; UA Doppler PI is 1.13 (75'th 'centile); MCA 1.31 MoM Twin 2: vertex, maternal right and high, normal bladder and AF volumes; UA Doppler PI is 1.45 (99'th 'centile); MCA 1.37 MoM DA/MC twin IUP at 28 weeks + 3 days Twin 2 borderline growth and elevated UA Doppler PI No signs of TTTS or TAPS Assessment/Plan: Harshal Lora is a 24 y.o. at 28w3d by with a complicated by the following concerns: Problem List Supervision of high-risk , third trimester - Primary Overview [] OB consult only, [] Co-management vs. [x] Full MFM Care; [] Red Team [] Blue Team Referring Provider: Ashley Arnold [phone] [] [employer] or Medicare Insurance [x] Dating Criteria: [place] 12/03/24 with CLARICE 06/20/25 [x] Labs: Rh [A+], Ab [negative], Rubella [immune], HIV [non-reactive], HepBSAg [non-reactive], HepBSAb [not done], HepBCAb [not done], RPR [non- reactive], Hep C [non-reactive], Varicella [not done], GC/CT [negative/negative] [x] Aneuploidy Screening: NIPT low risk [x] Carrier Screening: CF negative, SMA negative, Alpha-Thalassemia negative, Sickle Cell/Beta-Thalassemia/Hemoglobinopathies negative [] Hgb electrophoresis: [x] CBC/Hgb: 13.6/40.6/plt 322 [x] Hgb Ac1 12/05/24: 5.1 [x] UCx: 12/05/24: no growth [] Pap: requested 03/10 [] LD ASA (if indicated): [] EPDS [ ]; PNBHS referral (if indicated): 2nd Trimester [x] Anatomy ultrasound: [x] CBC/1hr gtt at 24-28wks: 03/04/25: 10.8/32.3, GTT 137, HIV [non-reactive], RPR [non-reactive] [] Rhogam at 28 wks (if Rh neg): 3rd Trimester [] CBC/HIV/RPR/T&S: [] GBS: [] GC/CT (if indicated): [] testing: Counseling [] MOD: [] Place of delivery: [facility] [] Epidural: [] Accepts Blood Products: [] Stop ASA: [] MOC: undecided [] Method of feeding: breast [] Garment Sewer Hand (specifically which provider): [] PP Depression Discussed: [] PP visits scheduled: Vaccines [] Flu Shot (Jun-Aug): [] COVID vaccine: [] Tdap (27-36wks): [] RSV vaccine (32-36wks): [] PP HPV vaccine counseling (<=26 yo): Monochorionic diamniotic twin in third trimester Overview History Twin 2 with velamentous cord insertion and elevated UA dopplers Plan: [x] ASA 81 mg at 12 weeks [x] Baseline preeclampsia labs - CBC, CMP, UPC [] TTTS/TAPS screening 16-36 weeks every 2 weeks- ongoing [x] Specialized anatomy 20 weeks with TVCL [] echocardiogram 20-22 weeks- 04/14 [] Serial growth ultrasounds every 4 weeks [] Weekly testing at 32 weeks [] Delivery at [id number] ([id number] if otherwise uncomplicated) movement, preeclampsia and labor precautions reviewed today Tdap today Progress Notes - Orders Only - 03/16/2025 - GA:26w2d 03/16/2025 - w2d - Ashok Tanner RN CBC, echo X2 Progress Notes - Office Visi t - 03/16/2025 - GA:26w2d 03/16/2025 - - Leah Bejarano MD Maternal Medicine Consult Note Reason for Consult: CORTNEY for NICU 24 y.o. at 28w2d here today for transfer of care due to anticipated NICU needs. Her is also complicated by MCDA twin gestation. Today she is doing well, she reports no complaints. Past Medical History: Diagnosis Date Toxic shock syndrome (HCC) Past Surgical History: Procedure Laterality Date MYRINGOTOMY W/ TUBES TONSILLECTOMY Current Outpatient Medications Medication Instructions aspirin 81 mg, Daily cyclobenzaprine (FLEXERIL) 5 mg tablet 1 tablet every 8 hours prn ketoconazole (NIZORAL) 2 % cream Use twice a day on chest and thighs ketoconazole (NIZORAL) 2 % shampoo topical, 2 times weekly, Apply to damp skin, lather, leave on 5 minutes, and rinse ondansetron ODT (ZOFRAN-ODT) 8 mg disintegrating tablet Allergies Allergen Reactions Amoxicillin Rash Social History Tobacco Use Smoking status: Never Smokeless tobacco: Never Substance and Sexual Activity Drug use: Yes Frequency: 7.0 times per week Types: Marijuana Sexual activity: Yes Partners: Male Alcohol Use: Not At Risk (03/16/2025) AUDIT-C Frequency of Alcohol Consumption: Never Average Number of Drinks: Patient does not drink Frequency of Binge Drinking: Not on file OB History Para Term AB Living 1 SAB IAB Ectopic Multiple Live Births # Outcome Date GA Lbr James/2nd Weight Sex Type Anes PTL Lv 1 Current Past Gynecologic History: Prior STIs: no History of abnormal pap: no Last pap smear: unknown Patient's last menstrual period was 09/07/2024 (exact date). Denies history of uterine anomalies or fibroids Family History: Family History Problem Relation Age of Onset No Known Problems Mother No Known Problems Father Neural tube defects: No Down syndrome or other chromosomal anomalies: No Hemophilia, sickle cell, bleeding/clotting disorder: No Muscular dystrophy: No Cystic fibrosis: No Intellectual disability or Fragile X: No Rakesh disease: No Other defects or genetic disorders: No Dating: Review of Systems Constitutional: Negative. Respiratory: Negative. Cardiovascular: Negative. Gastrointestinal: Negative. Genitourinary: Negative. Musculoskeletal: Negative. Neurological: Negative. Psychiatric/Behavioral: Negative. Physical Exam Vitals BP 119/76 Pulse 90 Temp 36.5 C (97.7 F) Resp 16 Ht 160 cm (5' 3) Wt 194 lb (88 kg) LMP 09/07/2024 (Exact Date) SpO2 99% BMI 34.37 kg/m General: Healthy, alert, active, cooperative, and in no distress Heart: Regular rate Lungs: Non-labored respirations Abdomen: Gravid, non-tender Extremities: Warm and well-perfused The rest of the exam was deferred Ultrasound 03/16/2025: MC/DA twins - 26w 2d per CLARICE provided - the sizes are concordant and AGA The MVP is normal in both sacs and the bladder is visible in both twins. The UA Doppler PI is normal for Tw 1 and marginally elevated for Tw 2. Diastolic flow is noted in all waveforms. The MCA Doppler PSV is normal for both twins. No current sonographic evidence of TTTS or TAPS. Known velamentous cord insertion, Tw 2 Tw 2 is presenting and is VTX. Tw 1 is above Tw 2 and is VTX. [facility] visit to follow. Please see the separate report for full details Assessment: Ms. Harshal Lora is a arely 24 y.o. at 28w2d here today for a consult regarding: Recommendations: Problem Monochorionic Diamniotic Twin in Third Trimester History Twin 2 with velamentous cord insertion Counseling 03/16/2025: We discussed the types of twin gestations and reviewed that monochorionic diamniotic (MCDA) twins share a single placenta but have separate amniotic sacs. This can lead to complications caused by twin placental sharing. We discussed that twin gestations are at increased risk of premature delivery (both spontaneous and iatrogenic), preeclampsia, gestational diabetes, section, growth abnormalities, congenital anomalies, acute fatty liver, polymorphic eruption of (PEP), intrahepatic cholestasis of , venous thromboembolism (VTE), and loss. Due to increased risk of hypertensive disorders of , low dose 81 mg aspirin is recommended starting at 12 weeks gestation in all twin pregnancies. The average gestational at delivery in twins is 35 weeks gestation. Due to the risk of prematurity, higher rates of morbidity and mortality are seen in the infants of twin pregnancies. We reviewed symptoms of labor and indications to present to triage for evaluation. Monochorionic twins are at increased risk for Vvmj-wx-Zjxt transfusion Syndrome (TTTS, 10-15%), Twin Anemia-Polycythemia Sequence (TAPS, 3-5%), and selective growth restriction (sFGR, 10-15%). TTTS is marked by polyhydramnios in one twin and oligohydramnios in the other twin. Several stages exist, with cases ranging from mild disease to severe disease involving of one or both twins. We reviewed that TTTS is often unpredictable in onset and severity, although most cases occur prior to 26 weeks. TAPS is a chronic form of TTTS detected by differences in middle cerebral artery Doppler flow and generally happens in the third trimester. Both TTTS and TAPS increase the risk of loss of one or both twins, but we reviewed that therapies are available through the [facility] if these complications arise. Selective FGR occurs due to unequal placental sharing and can increase the risk of loss. Unfortunately, there is no therapy to treat sFGR and management is guided by severity of Doppler changes. Often early delivery is indicated in cases of TTTS, TAPS, and sFGR. We recommend a first trimester anatomy ultrasound at 12-13 weeks and specialized anatomy ultrasound at 18-22 weeks to screen for anomalies and transvaginal ultrasound to screen for cervical length. The use of progesterone for short cervix in twin pregnancies has been shown to decrease risk for extreme delivery and can be considered; additionally, a randomized-controlled trial has shown benefit for exam-indicated cerclage in twin pregnancies. Additionally, echocardiograms are recommended between 20-22 weeks given increased risk of cardiac anomalies in monochorionic twins. We discussed the need for close surveillance of with serial ultrasounds (every 2 weeks to screen for TTTS/TAPS and every 4 weeks for growth). testing is recommended weekly starting at 32 weeks if the is without other complications. We discussed timing of delivery and, given the increase in morbidity and mortality in MCDA twin pregnancies carried beyond 37w6d weeks, we would recommend delivery between [id number]. Mode of delivery with twin gestations depends on twin type, twin presentation, gestational age and delivery clinician experience (breech vaginal delivery, internal podalic version, total breech extraction). Mode of delivery will be determined by crimper operator experience along with informed patient consent. Neuraxial anesthesia is recommended to facilitate internal interventions (external or internal cephalic version, total breech extraction) as well as operative vaginal delivery or emergent delivery if needed. Regardless of planned mode of delivery, twins are typically delivered in the operating room. Plan: [x] ASA 81 mg at 12 weeks [x] Baseline preeclampsia labs - CBC, CMP, UPC [] TTTS/TAPS screening 16-36 weeks every 2 weeks- ongoing [x] Specialized anatomy 20 weeks with TVCL [] echocardiogram 20-22 weeks- ordered 03/16 [] Serial growth ultrasounds every 4 weeks [] Weekly testing at 32 weeks [] Delivery at [id number] ([id number] if otherwise uncomplicated) We have scheduled her to return in 2 weeks with a visit and US. Leah Bejarano MD I spent 40 minutes in consultation with this patient which includes pre-charting and documentation. This does not include time for separately billable services. Progress Notes - Abstract - 03/10/2025 - GA:25w3d 03/10/2025 - 25w3d - Janny Finch RMA Current OB records are under media tab. Last Filed Vital Signs Vital Sign Reading Time Taken Comments Blood Pressure 123/69 05/12/2025 7:00 PM CDT Pulse 93 05/12/2025 7:18 PM CDT Temperature 36.8 C (98.2 F) 05/12/2025 4:42 PM CDT Respiratory Rate 18 05/12/2025 4:42 PM CDT Oxygen Saturation 98% 05/12/2025 7:18 PM CDT Inhaled Oxygen Concentration - - Weight 105.6 kg (232 lb 12.8 oz) 05/12/2025 4:42 PM CDT Height 160 cm (5' 3) 05/12/2025 4:42 PM CDT Body Mass Index 41.24 05/12/2025 4:42 PM CDT Plan of Treatment Upcoming Encounters Date Type Department Care Team (Late st Contact Info) Description 06/20/2025 Hospital Encounter [address] [id number] Anai Harmon MD [address] [id number] Health Maintenance Due Date Last Done Comments Cervical Cancer Screening 2000 Depression Screening 2000 Hepatitis C Screening 2000 Chlamydia and Gonorrhea (GC/ CT) Screening 05/11/2018 05/11/2017 Regular Well Visit/Exam 18-64 2018 Influenza Vaccine (#1) 2025 07/16/2015, 2004 DTaP/Tdap/Td Vaccine (8 - Td or Tdap) 03/31/2035 03/31/2025, 07/13/2012, 02/12/2006, Additional history exists Hepatitis B Screening Completed 08/06/2001 , 2000, 2000 Pneumococcal vaccine <65 Completed 002, 05/29/2001, 03/26/2001, Additional history exists Varicella Vaccines Completed 07/13/2012, 11/14/2001 HPV Vaccines Completed 07/16/2015, 05/2015, 01/04/2015 Procedures Procedure Name Priority Date/Time Associated Diagnosis Comments EGFR STAT 05/12/2025 5:27 PM CDT CBC WITHOUT DIFFERENTIAL STAT 05/12/2025 5:27 PM CDT COMPREHENSIVE METABOLIC PANEL STAT 05/12/2025 5:27 PM CDT TYPE AND SCREEN STAT 05/12/2025 5:27 PM CDT URIC ACID STAT 05/12/2025 5:27 PM CDT PROTEIN / CREATININE RATIO, URINE, RANDOM STAT 05/12/2025 5:27 PM CDT POCT URINALYSIS (CLINITEK) Routine 05/12/2025 5:01 PM CDT OB FOLLOW UP Schedule Routine, Read Routine (OP Routine) 05/12/2025 12:29 PM CDT Supervision of high-risk , third trimester Monochorionic diamniotic twin in third trimester PROTEIN / CREATININE RATIO, URINE, RANDOM Routine 05/05/2025 12:23 PM CDT Monochorionic diamniotic twin in third trimester Supervision of high-risk , third trimester Swelling of lower extremity during in third trimester EGFR Routine 05/05/2025 10:36 AM CDT Monochorionic diamniotic twin in third trimester Supervision of high-risk , third trimester Swelling of lower extremity during in third trimester CBC WITHOUT DIFFERENTIAL Routine 05/05/2025 10:36 AM CDT Monochorionic diamniotic twin in third trimester Supervision of high-risk , third trimester Swelling of lower extremity during in third trimester COMPREHENSIVE METABOLIC PANEL Routine 05/05/2025 10:36 AM CDT Monochorionic diamniotic twin in third trimester Supervision of high-risk , third trimester Swelling of lower extremity during in third trimester NONSTRESS TEST Routine 05/05/2025 9:44 AM CDT Monochorionic diamniotic twin in third trimester HEMOGLOBIN ANALYSIS BY ELECTROPHORESIS Routine 04/28/2025 4:30 PM CDT Monochorionic diamniotic twin in third trimester Supervision of high-risk , third trimester CBC WITHOUT DIFFERENTIAL Routine 04/28/2025 4:30 PM CDT Monochorionic diamniotic twin in third trimester Supervision of high-risk , third trimester HEPATITIS B CORE ANTIBODY, TOTAL Routine 04/28/2025 4:30 PM CDT Monochorionic diamniotic twin in third trimester Supervision of high-risk , third trimester HEPATITIS B SURFACE ANTIBODY (IMMUNE STATUS) Routine 04/28/2025 4:30 PM CDT Monochorionic diamniotic twin in third trimester Supervision of high-risk , third trimester HIV 1/2 ANTIBODY PLUS P24 ANTIGEN Routine 04/28/2025 4:29 PM CDT Monochorionic diamniotic twin in third trimester Supervision of high-risk , third trimester RPR Routine 04/28/2025 4:29 PM CDT Monochorionic diamniotic twin in third trimester Supervision of high-risk , third trimester VARICELLA ZOSTER ANTIBODY, IGG Routine 04/28/2025 4:28 PM CDT Monochorionic diamniotic twin in third trimester Supervision of high-risk , third trimester US OB LIMITED Schedule Routine, Read Routine (OP Routine) 04/28/2025 1:17 PM CDT Supervision of high-risk , third trimester Monochorionic diamniotic twin in third trimester US OB FOLLOW UP Schedule Routine, Read Routine (OP Routine) 04/15/2025 1:25 PM CDT Supervision of high-risk , third trimester Monochorionic diamniotic twin in third trimester ECHOCARDIOGRAM Routine 04/14/2025 2:09 PM CDT Monochorionic diamniotic twin in third trimester Supervision of high-risk , third trimester ECHOCARDIOGRAM Routine 04/14/2025 2:09 PM CDT Monochorionic diamniotic twin in third trimester Supervision of high-risk , third trimester US OB LIMITED Schedule Routine, Read Routine (OP Routine) 03/31/2025 2:49 PM CDT Supervision of high-risk , unspecified trimester Monochorionic diamniotic twin in third trimester CBC WITHOUT DIFFERENTIAL Routine 03/16/2025 4:49 PM CDT Monochorionic diamniotic twin in third trimester Supervision of high-risk , third trimester US OB DETAIL ANATOMY SINGLE OR FIRST GESTATION Schedule Routine, Read Routine (OP Routine) 03/16/2025 2:27 PM CDT Unspecified high-risk N. GONORRHOEAE/C. TRACHOMATIS AMPLIFICATION TEST Timed 05/11/2017 9:05 PM CDT from Last 3 Months or Most Recently Relevant to Health Maintenance Results * eGFR (05/12/2025 5:27 PM CDT) eGFR >90 >=60 mL/min/1. 73 m2 Comment: Interpretive Data Reference Interval Normal >/= 90 mL/min/1.73m2 Mildly decreased* 60 - 89 mL/min/1.73m2 Mildly to moderately decreased 45 - 59 mL/min/1.73m2 Moderately to severely decreased 30 - 44 mL/min/1.73m2 Severely decreased 15 - 29 mL/min/1.73m2 Kidney Failure < 15 mL/min/1.73m2 *Relative to young adult level Estimated glomerular filtration rate is determined by the 2020 CKD-EPI equation recommended by the National Kidney Foundation (A Unifying Approach to GFR Estimation: Recommendations of the NKF-ASK Task Force on Reassessing the Inclusion of Race in Diagnosing Kidney Disease, JASN 2020). The CKD-EPI equation should not be used for patients with unstable renal function and has not been validated in children and those over 70. Current interpretive data was last reviewed 2021. Blood 05/12/2025 5:27 PM CDT 05/12/2025 5:46 PM CDT us Jacquie Friedman NP LAB BLOOD ORDERABLES Fin al Result [facility] [place] [address] * Protein / creatinine ratio, urine, random (05/12/2025 5:27 PM CDT) Protein, ur, quant 25.8 mg/dL Comment: Interpretive Data No reference range established. Current interpretive data was last revised 2019. Creatinine Ur 209.2 mg/dL [facility] Comment: Interpretive Data No reference range established. Current interpretive data was last revised 2019. Protein/creatinin e ratio 123.3 0.0 - 180.0 mg/g CR [facility] Urine 05/12/2025 5:27 PM CDT 05/12/2025 5:46 PM CDT Jacquie Friedman REHABILITATION PHYSICIAN LAB URINE ORDERABLES Fin al Result Performing Organization Address [facility] de Phone Number [facility] Department [place] [address] * (ABNORMAL) CBC without differential (05/12/2025 5:27 PM CDT) WBC 12.53(H) 3.80 - 9.90 K/cumm Hgb 10.8(L) 11.9 - 15.5 g/dL [facility] Hct 32.5(L) 35.6 - 45.5 % [facility] Plt 324 150 - 400 K/cumm [facility] MPV 11.0 9.1 - 12.3 fL [facility] RBC 4.15 3.90 - 5.20 M/cumm [facility] MCV 78.3(L) 81.3 - 96.4 fL [facility] MCH 26.0(L) 27.1 - 33.3 pg [facility] MCHC 33.2 32.3 - 35.7 g/dL [facility] RDW CV 13.6 11.1 - 14.9 % [facility] RDW SD 38.9 35.7 - 48.1 fL [facility] NRBC abs 0.00 0.00 - 0.01 K/cumm [facility] Blood 05/12/2025 5:27 PM CDT 05/12/2025 5:47 PM CDT Jacquie Friedman REHABILITATION PHYSICIAN LAB BLOOD ORDERABLES Fin al Result Performing Organization Address [facility]/ZIP Co de Phone Number [facility] [place] [address] * Type and screen (05/12/2025 5:27 PM CDT) ABO Rh A Positive Megha, indirect Negative [facility] Blood 05/12/2025 5:27 PM CDT 05/12/2025 5:37 PM CDT Narrative [facility] - 05/12/2025 6:25 PM CDT Has the patient had Daratumumab or Isatuximab in the past 6 months?->Unknown Jacquie Friedman REHABILITATION PHYSICIAN LAB BLOOD BANK TEST ORDE RABLES Final Result [facility] [place] [address] * Uric acid (05/12/2025 5:27 PM CDT) [facility] Uric acid 4.7 2.5 - 7.0 mg/dL Blood 05/12/2025 5:27 PM CDT 05/12/2025 5:46 PM CDT Jacquie Friedman REHABILITATION PHYSICIAN LAB BLOOD ORDERABLES Fin al Result Performing Organization Address City/[facility]/ZIP Co de Phone Number [facility] Department [place] [address] * (ABNORMAL) Comprehensive metabolic panel (05/12/2025 5:27 PM CDT) [facility] Sodium 140 135 - 145 mmol/L Potassium, pl 4.3 3.3 - 4.9 mmol/L [facility] Chloride 110 97 - 110 mmol/L [facility] CO2 22 22 - 32 mmol/L [facility] Anion gap 8 2 - 15 mmol/L [facility] BUN 6 6 - 25 mg/dL [facility] Creatinine 0.54(L) 0.60 - 1.10 mg/dL [facility] Glucose 82 70 - 199 mg/dL [facility] Comment: Interpretive Data Fasting glucose >/= 126 mg/dl is diagnostic for diabetes. Fasting is defined as no caloric intake for at least 8 hours. Fasting glucose between 100 mg/dl to 125 mg/dl is diagnostic of prediabetes. In a patient with classic symptoms of hyperglycemia or hyperglycemic crisis, a random glucose >/= 200 mg/dl is diagnostic for diabetes. In the absence of unequivocal hyperglycemia, results should be confirmed by repeat testing. The classification and Diagnosis of Diabetes Diabetes Care 2021; 46: S19-S40. Current interpretive data was last revised 2022. Calcium 9.7 8.5 - 10.3 mg/dL [facility] Bilirubin, total 0.2 0.1 - 1.2 mg/dL [facility] Protein, pl 5.8(L) 6.5 - 8.5 g/dL [facility] Albumin 2.9(L) 3.5 - 5.0 g/dL [facility] Alk phos 187(H) 40 - 130 Units/L [facility] ALT 16 7 - 45 Units/L [facility] AST 21 10 - 45 Units/L [facility] Blood 05/12/2025 5:27 PM CDT 05/12/2025 5:46 PM CDT us Jacquie Friedman REHABILITATION PHYSICIAN LAB BLOOD ORDERABLES Fin al Result [facility] [place] [address] * (ABNORMAL) POCT urinalysis (Clinitek) (05/12/2025 5:01 PM CDT) Color, ur, POC Yellow Yellow Clarity, UA, POC Clear Clear [facility] Glucose, ur, POC Negative Negative [facility] Bilirubin, ur, POC Negative Negative [facility] Ketones, ur, POC 2+(A) Negative [facility] Specific gravity, ur, POC 1.025 1.010 - 1.025 [facility] Blood, ur, POC Negative Negative [facility] pH, ur, POC 7.0 [facility] Comment: Interpretive Data Urine pH is affected by diet, medications, systemic acid-base disturbances, and renal tubular function. pH may affect urinary stone formation. For example, urine pH below 6.0 may help reduce the tendency for calcium phosphate stones and pH greater than 6.0 may reduce the tendency for uric acid stone formation. Source: [place] [employer]. Last Revised Date: 10-11-2017 Protein, ur, POC 1+(A) Negative [facility] Urobilinogen, ur, POC 0.2 mg/dL mg/dL [facility] Nitrites, ur, POC Negative Negative [facility] Leukocyte esterase, ur, POC Negative Negative [facility] Urine 05/12/2025 5:01 PM CDT 05/12/2025 5:01 PM CDT us Anai Harmon MD LAB POCT ORDERABLES - DEVICE Final Result [facility] [place] [address] * US Ob Follow Up (05/12/2025 12:29 PM CDT) Fetus# Fetus1 VIEWPOINT Estimated Weight 2,106 g&grams VIEWPOINT Placenta Details anterior, Previa-no VIEWPOINT Presentation Vertex; Maternal left- low VIEWPOINT Fetus# Fetus2 VIEWPOINT Estimated Weight 2,064 g&grams VIEWPOINT Placenta Details anterior, Previa-no VIEWPOINT Presentation Vertex; Maternal right- high VIEWPOINT Anatomical Region Laterality Modality Abdomen N/A Ultrasound 05/12/2025 12:4 2 PM CDT Impressions 05/12/2025 2:11 PM CDT Monochorionic diamniotic twin gestation at 34 weeks and 3 days. Twin 1: Vertex, low and to the left. growth is in the lower range of normal with EFW at the 13th percentile. Normal bladder filling and amniotic fluid volume is seen. Middle cerebral artery Doppler PSV measures within normal limits. Umbilical artery Doppler PI measures within normal limits. The biophysical profile is 8/8 with normal breathing motion, body motion, tone and amniotic fluid volume. Twin 2: Vertex right and high. growth is in the lower range of normal with EFW at the 11th percentile. Amniotic fluid volume is normal and normal bladder filling is seen. Umbilical artery Doppler PI is increased greater than the 99th percentile however with forward flow throughout all waveforms. Middle cerebral artery PSV measures within normal limits. The biophysical profile is 8/8 with normal breathing motion, body motion, tone and amniotic fluid volume. Narrative Procedure Note Jhoana Chin MD - 05/12/2025 IMPRESSION: Monochorionic diamniotic twin gestation at 34 weeks and 3 days. Twin 1: Vertex, low and to the left. growth is in the lower rangeof normal with EFW at the 13th percentile. Normal bladder filling andamniotic fluid volume is seen. Middle cerebral artery Doppler PSVmeasures within normal limits. Umbilical artery Doppler PI measureswithin normal limits. The biophysical profile is 8/8 with normalbreathing motion, body motion, tone and amniotic fluid volume. Twin 2: Vertex right and high. growth is in the lower range ofnormal with EFW at the 11th percentile. Amniotic fluid volume is normaland normal bladder filling is seen. Umbilical artery Doppler PI isincreased greater than the 99th percentile however with forward flowthroughout all waveforms. Middle cerebral artery PSV measures withinnormal limits. The biophysical profile is 8/8 with normal breathingmotion, body motion, tone and amniotic fluid volume. Jhoana Chin MD IMG OB US PROCEDURES Yolanda l Result * Protein / creatinine ratio, urine, random (05/05/2025 12:23 PM CDT) Protein, ur, quant 32.3 mg/dL Comment: Interpretive Data No reference range established. Current interpretive data was last revised 2019. Creatinine Ur 231.6 mg/dL [facility] Comment: Interpretive Data No reference range established. Current interpretive data was last revised 2019. Protein/creatinin e ratio 139.5 0.0 - 180.0 mg/g CR [facility] Urine 05/05/2025 12:2 3 PM CDT 05/05/2025 12:23 PM CDT Narrative [facility] - 05/05/2025 12:53 PM CDT No reference range established for random urine total protein. us Dana Camejo MD LAB URINE ORDERABLES Yolanda l Result Performing Organization Address [facility] Co de Phone Number [facility] [address] [place] [address] * eGFR (05/05/2025 10:36 AM CDT) eGFR >90 >=60 mL/min/1. 73 m2 Comment: Interpretive Data Reference Interval Normal >/= 90 mL/min/1.73m2 Mildly decreased* 60 - 89 mL/min/1.73m2 Mildly to moderately decreased 45 - 59 mL/min/1.73m2 Moderately to severely decreased 30 - 44 mL/min/1.73m2 Severely decreased 15 - 29 mL/min/1.73m2 Kidney Failure < 15 mL/min/1.73m2 *Relative to young adult level Estimated glomerular filtration rate is determined by the 2020 CKD-EPI equation recommended by the National Kidney Foundation (A Unifying Approach to GFR Estimation: Recommendations of the NKF-ASK Task Force on Reassessing the Inclusion of Race in Diagnosing Kidney Disease, JASN 2020). The CKD-EPI equation should not be used for patients with unstable renal function and has not been validated in children and those over 70. Current interpretive data was last reviewed 2021. Blood 05/05/2025 10:3 6 AM CDT 05/05/2025 10:36 AM CDT Dana Camejo MD LAB BLOOD ORDERABLES Yolanda l Result Performing Organization Address City/[facility]/ZIP Co de Phone Number [facility] [address] [place] [address] * (ABNORMAL) CBC without differential (05/05/2025 10:36 AM CDT) Pathologist [facility] WBC 11.42(H) 3.80 - 9.90 K/cumm Hgb 10.7(L) 11.9 - 15.5 g/dL [facility] Hct 33.4(L) 35.6 - 45.5 % [facility] Plt 293 150 - 400 K/cumm [facility] MPV 10.7 9.1 - 12.3 fL [facility] RBC 4.04 3.90 - 5.20 M/cumm [facility] MCV 82.7 81.3 - 96.4 fL [facility] MCH 26.5(L) 27.1 - 33.3 pg [facility] MCHC 32.0(L) 32.3 - 35.7 g/dL [facility] RDW CV 13.4 11.1 - 14.9 % [facility] RDW SD 40.6 35.7 - 48.1 fL [facility] NRBC abs 0.00 0.00 - 0.01 K/cumm [facility] Blood 05/05/2025 10:3 6 AM CDT 05/05/2025 10:36 AM CDT Dana Camejo MD LAB BLOOD ORDERABLES Yolanda logan Result [facility] [address] [place] [address] * (ABNORMAL) Comprehensive metabolic panel (05/05/2025 10:36 AM CDT) Sodium 140 135 - 145 mmol/L Potassium, pl 4.0 3.3 - 4.9 mmol/L [facility] Chloride 111(H) 97 - 110 mmol/L [facility] CO2 18(L) 22 - 32 mmol/L [facility] Anion gap 11 2 - 15 mmol/L [facility] BUN 6 6 - 25 mg/dL [facility] Creatinine 0.51(L) 0.60 - 1.10 mg/dL [facility] Glucose 86 70 - 199 mg/dL [facility] Comment: Interpretive Data Fasting glucose >/= 126 mg/dl is diagnostic for diabetes. Fasting is defined as no caloric intake for at least 8 hours. Fasting glucose between 100 mg/dl to 125 mg/dl is diagnostic of prediabetes. In a patient with classic symptoms of hyperglycemia or hyperglycemic crisis, a random glucose >/= 200 mg/dl is diagnostic for diabetes. In the absence of unequivocal hyperglycemia, results should be confirmed by repeat testing. The classification and Diagnosis of Diabetes Diabetes Care 2021; 46: S19-S40. Current interpretive data was last revised 2022. Calcium 8.7 8.5 - 10.3 mg/dL [facility] Bilirubin, total <0.2 0.1 - 1.2 mg/dL [facility] Protein, pl 5.0(L) 6.5 - 8.5 g/dL [facility] Albumin 2.7(L) 3.5 - 5.0 g/dL [facility] Alk phos 178(H) 40 - 130 Units/L [facility] ALT 13 7 - 45 Units/L [facility] AST 21 10 - 45 Units/L [facility] Blood 05/05/2025 10:3 6 AM CDT 05/05/2025 10:36 AM CDT Dana Camejo MD LAB BLOOD ORDERABLES Yolanda logan Result [facility] [address] Department [place] [address] * nonstress test - (05/05/2025 9:44 AM CDT) NST Locations [facility] Baseline Comment:A-130/B-125 FHR Variabilities Moderate (6-25bpm) Minimal (<5bpm), Moderate (6-25bpm), Marked (>25bpm) Comment:x 2 Decelerations None None, Variable, Early, Variable/Ea rly, Other (comment) Comment:x 2 Uterine Activity Yes Comment:x 2 Assessment Reactive Reactive Comment:x 2 Dana Camejo MD OB GYNE ORDERABLES Edited Result - Final * (ABNORMAL) Hemoglobin analysis by electrophoresis (04/28/2025 4:30 PM CDT) RBC 3.98 3.90 - 5.20 M/cumm Comment:Testing performed by : [facility], [address] [place]., [address] Hgb 10.4(L) 11.9 - 15.5 g/dL [facility] Comment:Testing performed by : [facility], [address] [place]., [address] MCV 83.4 81.3 - 96.4 fL [facility] Comment:Testing performed by : [facility], [address] [place]., [address] Rdw 13.6 11.1 - 14.9 % [facility] Comment:Testing performed by : [facility], [address] [facility], [address] Hgb electrophoresis , interp Please see comment [facility] Comment: Normal hemoglobin pattern for age Reviewed and signed by Tab Obrien MD 04/30/2025 Testing performed by: [facility], [address] [facility], [address] Hgb A 97.4 96.0 - 98.5 % [facility] Comment:Testing performed by : [facility], [address] [facility], [address] Hgb A2 2.6 1.5 - 3.2 % [facility] Comment:Testing performed by : [facility], [address] [place]., [address] Hgb F <0.4 0.0 - 0.9 % [facility] Comment:Testing performed by : [facility], [address] [facility], [address] Blood 04/28/2025 4:30 PM CDT 04/28/2025 7:41 PM CDT us Dana Camejo MD LAB BLOOD ORDERABLES Yolanda logan Result [facility] [address] Department [place] [address] * Hepatitis B core antibody, total Blood (04/28/2025 4:30 PM CDT) Hep B core IgG/IgM Nonreactive Nonreactive Comment:Testing performed by : [facility], [address] [place]., [address] Blood 04/28/2025 4:30 PM CDT 04/28/2025 7:52 PM CDT Dana Camejo MD LAB MICROBIOLOGY - GENERA L ORDERABLES Final Result Performing Organization Address [facility] Co de Phone Number [facility] [address] [place] [address] * Hepatitis B surface antibody (immune status) Blood (04/28/2025 4:30 PM CDT) [facility] HBsAb (immune status) Nonreactive Comment: This result is consistent with a lack of immunity to Hepatitis B Virus when used in the setting of routine screening. Current interpretative data was last revised on 22 Testing performed by: [facility], [address] [place]., [address] Blood 04/28/2025 4:30 PM CDT 04/28/2025 7:52 PM CDT us Dana Camejo MD LAB MICROBIOLOGY - GENERA L ORDERABLES Final Result Performing Organization Address [facility] Co de Phone Number [facility] [address] [place] [address] * (ABNORMAL) CBC without differential (04/28/2025 4:30 PM CDT) [facility] WBC 12.74(H) 3.80 - 9.90 K/cumm Hgb 10.9(L) 11.9 - 15.5 g/dL [facility] Hct 33.8(L) 35.6 - 45.5 % [facility] Plt 313 150 - 400 K/cumm [facility] MPV 10.5 9.1 - 12.3 fL [facility] RBC 4.09 3.90 - 5.20 M/cumm [facility] MCV 82.6 81.3 - 96.4 fL [facility] MCH 26.7(L) 27.1 - 33.3 pg [facility] MCHC 32.2(L) 32.3 - 35.7 g/dL [facility] RDW CV 13.5 11.1 - 14.9 % [facility] RDW SD 40.3 35.7 - 48.1 fL [facility] NRBC abs 0.00 0.00 - 0.01 K/cumm [facility] Blood 04/28/2025 4:30 PM CDT 04/28/2025 4:30 PM CDT Dana Camejo MD LAB BLOOD ORDERABLES Yolanda l Result [facility] [address] [place] [address] * HIV 1/2 Antibody plus p24 Antigen Blood (04/28/2025 4:29 PM CDT) HIV 1/2 ab + p24 ag Nonreactive Nonreactive Comment: Nonreactive for HIV-1 antigen and HIV-1/HIV-2 antibodies. No laboratory evidence of HIV infection. If acute HIV infection is suspected, consider testing for HIV-1 RNA. Blood 04/28/2025 4:29 PM CDT 04/28/2025 4:29 PM CDT Dana Camejo MD LAB MICROBIOLOGY - GENERA L ORDERABLES Final Result [facility] [address] [place] [address] * RPR Blood (04/28/2025 4:29 PM CDT) RPR Nonreactive Nonreactive Comment:Testing performed by : [facility], [address] [facility], [place]., [address] Blood 04/28/2025 4:29 PM CDT 04/28/2025 7:42 PM CDT Dana Camejo MD LAB MICROBIOLOGY - GENERA L ORDERABLES Final Result Performing Organization Address City/[facility]/ZIP Co de Phone Number [facility] [address] [place] [address] * (ABNORMAL) Varicella Zoster IgG antibody Blood (04/28/2025 4:28 PM CDT) Pathologist [facility] VZV IgG Nonreacti ve(A) Reactive Comment: Non-reactive: No detectable antibody to Varicella-zoster virus. Such individuals are presumed to be uninfected and to be susceptible to primary infection. Testing performed by: [facility], [address] [place] [address]., [id number] Blood 04/28/2025 4:28 PM CDT 04/28/2025 7:50 PM CDT Dana Camejo MD LAB MICROBIOLOGY - GENERA L ORDERABLES Final Result Performing Organization Address [facility] Co de Phone Number [facility] [address] [place] [address] * US Ob Limited (04/28/2025 1:17 PM CDT) [facility] Fetus# Fetus1 VIEWPOINT Placenta Details anterior, Previa-no VIEWPOINT Presentation Vertex; Maternal left- low VIEWPOINT Fetus# Fetus2 VIEWPOINT Placenta Details anterior, Previa-no VIEWPOINT Presentation Vertex; Maternal right- high VIEWPOINT Anatomical Region Laterality Modality Abdomen N/A Ultrasound 04/28/2025 1:19 PM CDT Impressions 04/28/2025 3:25 PM CDT Monochorionic diamniotic twin gestation at 32 weeks and 3 days. Twin 1 is vertex low and on the maternal left side. Twin 2 is vertex and high.BPP is are 8/8 for both twins. Amniotic fluid volume is normal for both twins. Middle cerebral artery PSV measures within normal limits for both twins. Umbilical artery Doppler PI is normal for twin 1 and increased to the 99th percentile for twin 2. No evidence of ygjf-jw-wwav transfusion syndrome or TAPS. Narrative Procedure Note Jhoana Chin MD - 04/28/2025 IMPRESSION: Monochorionic diamniotic twin gestation at 32 weeks and 3 days. Twin 1is vertex low and on the maternal left side. Twin 2 is vertex andhigh.BPP is are 8/8 for both twins. Amniotic fluid volume is normal forboth twins. Middle cerebral artery PSV measures within normal limits forboth twins. Umbilical artery Doppler PI is normal for twin 1 andincreased to the 99th percentile for twin 2. No evidence of bqsd-xk-aiknhjuwqqinnwy syndrome or TAPS. us Jhoana Chin MD IMG OB US PROCEDURES Yolanda l Result * US Ob Follow Up (04/15/2025 1:25 PM CDT) Fetus# Fetus1 VIEWPOINT Estimated Weight 1,496 g&grams VIEWPOINT Placenta Details anterior, Previa-no VIEWPOINT Presentation Vertex; Maternal left- low VIEWPOINT Fetus# Fetus2 VIEWPOINT Estimated Weight 1,427 g&grams VIEWPOINT Placenta Details anterior, Previa-no VIEWPOINT Presentation Vertex; Maternal right- high VIEWPOINT Anatomical Region Laterality Modality Abdomen N/A Ultrasound 04/15/2025 1:26 PM CDT Impressions 04/15/2025 2:49 PM CDT 1. Mo/Di twin IUP at 30w 4d with elevated UA PI for Twin 2. 2. Twin 1 Vertex; Maternal left- low: There has been interval growth. The DVP measures 4.9 cm. A normal bladder is seen. Doppler study of the umbilical vessels and cerebral artery show normal waveforms. The PSV in the MCA was recorded at 1.45 MoM. 3. Twin 2 Vertex; Maternal right- high: There has been interval growth. The DVP measures 6 cm. A normal bladder is seen. Doppler study of the umbilical artery is elevated. The middle cerebral artery show normal waveforms. The PSV in the MCA was recorded at 1.24 MoM. Narrative Procedure Note Yuliet Garcia MD - 04/15/2025 IMPRESSION: 1. Mo/Di twin IUP at 30w 4d with elevated UA PI for Twin 2. 2. Twin 1 Vertex; Maternal left- low: There has been interval fetalgrowth. The DVP measures 4.9 cm. A normal bladder is seen. Doppler study ofthe umbilical vessels and cerebral artery show normal waveforms. The PSVin the MCA was recorded at 1.45 MoM. 3. Twin 2 Vertex; Maternal right- high: There has been interval fetalgrowth. The DVP measures 6 cm. A normal bladder is seen. Doppler study ofthe umbilical artery is elevated. The middle cerebral artery show normalwaveforms. The PSV in the MCA was recorded at 1.24 MoM. us Jhoana Chin MD IMG OB US PROCEDURES Yolanda l Result * Echocardiogram (04/14/2025 2:09 PM CDT) Anatomical Region Laterality Modality Ultrasound 04/14/2025 12:3 2 PM CDT Narrative 04/14/2025 2:27 PM CDT [facility] Echo Report One [address] [address] Patient Name: HARSHAL LORA Study Type: Echo Patient : 2000 Exam Date: 04/14/2025 Age: 24Y Exam Time: 12:32:00 PM Referring MD: GOODMAN GAMBOA Height: 63in Weight: 203lb BSA: 1.95 m2 Sex: FEMALE BP: 139/86 Angular Js Developer: Ashlie Chapa Pat. Stat.: Outpatient Account:[id number] Indications for Study:[place]-Di Twins Procedures: Echocardiogram SUMMARY: Initial echocardiogram (2D, color, Doppler) performed on a 30w3d single fetus CLARICE (06/20/2025). Study quality is good. Twin A (LEFT, LOW) The fetus is in the transverse position. Impression: Grossly normal cardiac structure and function. Balanced four chamber view with qualitatively normal systolic function. There is levocardia noted. Normally related great vessels. No inflow or outflow tract obstruction. No obvious VSD. No valvar regurgitation. Unobstructed aortic and ductal arches. Left aortic arch. At least 2 pulmonary veins drain normally to the LA. Normal systemic venous return. Normal heart rate, 113 bpm with 1:1 AV conduction. No pericardial effusion. Three vessel cord noted, with normal Doppler pattern. Normal ductus venosus Doppler. Atria: Situs: Solitus. RA Size: Normal. LA Size: Normal. Septum: PFO. Defect sz. Moderate Shunt: [id number] Ventricles: D-looped LV size: Normal. LV function: Normal. RV size: Normal. RV function: Normal. IVS: Motion: Normal. Defect Type/Size: None./None. Shunt: None. Grt Vessls: Normal. Aortic Root: Normal. MPA: Normal LPA: Normal. RPA: Normal. Aortic Arch: Unobstructed Ductus Arteriosus: 107 cm/sec Systm Veins: SVC: Normal. IVC: Normal. Pulm Veins: Visualized: 2/4. Connections: Normal. Pericardium: Normal Mitral Valve: Biphasic Structure: Normal. Stenosis: No. Regurgitation: No. Tricuspid Valve: Biphasic Structure: Normal. Stenosis:No. Regurgitation: No. Pulmonary Valve: 70 cm/sec Structure: Normal. Stenosis: No. Regurgitation: No. Aortic Valve: 76 cm/sec Structure: Normal. Stenosis: No. Regurgitation: No. Pulsatility index: Ductal Arch: 2.62 Umb Artery: 1.41 cardiac rhythm: 1:1 AV conduction Rate: 113 bpm The attending physician has reviewed this study and has reviewed and/or edited this written report and agrees with it. FINDINGS: Signed 04/14/2025 2:27:00 PM Gris Rodriguez MD Procedure Note Gris Rodriguez MD - 04/14/2025 [facility] Echo Report [address] [address] Patient Name: HARSHAL LORA Study Type: Echo Patient : 2000 Exam Date: 04/14/2025 Age: 24Y Exam Time: 12:32:00 PM Referring MD: GOODMAN GAMBOA Height: 63in Weight: 203lb BSA: 1.95 m2 Sex: FEMALE BP: 139/86 Angular Js Developer: Ashlie Chapa [facility]. Stat.: Outpatient Account:[id number] Indications for Study:[place] Twins Procedures: Echocardiogram SUMMARY: Initial echocardiogram (2D, color, Doppler) performed on a 30w3d single fetus CLARICE (06/20/2025). Study quality is good. Twin A (LEFT, LOW) The fetus is in the transverse position. Impression: Grossly normal cardiac structure and function. Balanced four chamber view with qualitatively normal systolic function. There is levocardia noted. Normally related great vessels. No inflow or outflow tract obstruction. No obvious VSD. No valvar regurgitation. Unobstructed aortic and ductal arches. Left aortic arch. At least 2 pulmonary veins drain normally to the LA. Normal systemic venous return. Normal heart rate, 113 bpm with 1:1 AV conduction. No pericardial effusion. Three vessel cord noted, with normal Doppler pattern. Normal ductus venosus Doppler. Atria: Situs: Solitus. RA Size: Normal. LA Size: Normal. Septum: PFO. Defect sz. Moderate Shunt: [id number]-Hpfs Ventricles: D-looped LV size: Normal. LV function: Normal. RV size: Normal. RV function: Normal. IVS: Motion: Normal. Defect Type/Size: None./None. Shunt: None. Grt Vessls: Normal. Aortic Root: Normal. MPA: Normal LPA: Normal. RPA: Normal. Aortic Arch: Unobstructed Ductus Arteriosus: 107 cm/sec Systm Veins: SVC: Normal. IVC: Normal. Pulm Veins: Visualized: 2/4. Connections: Normal. Pericardium: Normal Mitral Valve: Biphasic Structure: Normal. Stenosis: No. Regurgitation: No. Tricuspid Valve: Biphasic Structure: Normal. Stenosis:No. Regurgitation: No. Pulmonary Valve: 70 cm/sec Structure: Normal. Stenosis: No. Regurgitation: No. Aortic Valve: 76 cm/sec Structure: Normal. Stenosis: No. Regurgitation: No. Pulsatility index: Ductal Arch: 2.62 Umb Artery: 1.41 cardiac rhythm: 1:1 AV conduction Rate: 113 bpm The attending physician has reviewed this study and has reviewed and/or edited this written report and agrees with it. FINDINGS: Signed 04/14/2025 2:27:00 PM Gris Rodriguez MD us Leah Bejarano MD CV ECHO PROCEDURES Final Res ult * Echocardiogram (04/14/2025 2:09 PM CDT) Anatomical Region Laterality Modality Ultrasound 04/14/2025 1:10 PM CDT Narrative 04/14/2025 2:32 PM CDT [facility] Echo Report [address] [address] Patient Name: HARSHAL LORA Study Type: Echo Patient : 2000 Exam Date: 04/14/2025 Age: 24Y Exam Time: 1:10:00 PM Referring MD: GOODMAN GAMBOA Height: 63in Weight: 203lb BSA: 1.95 m2 Sex: FEMALE BP: 139/86 Angular Js Developer: Ashlie Chapa Pat. Stat.: Outpatient Account:[id number] Indications for Study:Twin Gestation Procedures: Echocardiogram SUMMARY: Initial echocardiogram (2D, color, Doppler) performed on a 30w5d single fetus CLARICE (06/20/2025). Study quality is good. TWIN B (RIGHT, HIGH) The fetus is in the transverse position. Impression: Grossly normal cardiac structure and function Balanced four chamber view with qualitatively normal systolic function. There is levocardia noted. Normally related great vessels. No inflow or outflow tract obstruction. No obvious VSD. No valvar regurgitation. Unobstructed aortic and ductal arches. Left aortic arch. At least 2 pulmonary veins drain normally to the LA. Normal systemic venous return. Normal heart rate, 132bpm with 1:1 AV conduction. No pericardial effusion. Three vessel cord noted, with normal Doppler pattern. Normal ductus venosus Doppler. Atria: Situs: Solitus. RA Size: Normal. LA Size: Normal. Septum: PFO. Defect sz. Moderate Shunt: Irteo-fh-Boql Ventricles: D-looped LV size: Normal. LV function: Normal. RV size: Normal. RV function: Normal. IVS: Motion: Normal. Defect Type/Size: None./None. Shunt: None. Grt Vessls: Normal. Aortic Root: Normal. MPA: Normal LPA: Normal. RPA: Normal. Aortic Arch: Unobstructed Ductus Arteriosus: 112 cm/sec Systm Veins: SVC: Normal. IVC: Normal. Pulm Veins: Visualized: 2/4. Connections: Normal. Pericardium: Normal Mitral Valve: Biphasic Structure: Normal. Stenosis: No. Regurgitation: No. Tricuspid Valve: Biphasic Structure: Normal. Stenosis:No. Regurgitation: No. Pulmonary Valve: 71 cm/sec Structure: Normal. Stenosis: No. Regurgitation: No. Aortic Valve: -- cm/sec Structure: Normal. Stenosis: No. Regurgitation: No. Pulsatility index: Ductal Arch: 2.97 Umb Artery: 1.19 cardiac rhythm: 1:1 AV conduction Rate: 132 bpm The attending physician has reviewed this study and has reviewed and/or edited this written report and agrees with it. FINDINGS: Signed 04/14/2025 2:32:00 PM Gris Rodriguez MD Procedure Gris Hernandez MD - 04/14/2025 [facility] Echo Report One [facility] [address], [place] [address] Patient Name: HARSHAL LORA Study Type: Echo Patient : 2000 Exam Date: 04/14/2025 Age: 24Y Exam Time: 1:10:00 PM Referring MD: GOODMAN GAMBOA Height: 63in Weight: 203lb BSA: 1.95 m2 Sex: FEMALE BP: 139/86 Angular Js Developer: Ashlie Chapa Pat. Stat.: Outpatient Account:[id number] Indications for Study:Twin Gestation Procedures: Echocardiogram SUMMARY: Initial echocardiogram (2D, color, Doppler) performed on a 30w5d single fetus CLARICE (06/20/2025). Study quality is good. TWIN B (RIGHT, HIGH) The fetus is in the transverse position. Impression: Grossly normal cardiac structure and function Balanced four chamber view with qualitatively normal systolic function. There is levocardia noted. Normally related great vessels. No inflow or outflow tract obstruction. No obvious VSD. No valvar regurgitation. Unobstructed aortic and ductal arches. Left aortic arch. At least 2 pulmonary veins drain normally to the LA. Normal systemic venous return. Normal heart rate, 132bpm with 1:1 AV conduction. No pericardial effusion. Three vessel cord noted, with normal Doppler pattern. Normal ductus venosus Doppler. Atria: Situs: Solitus. RA Size: Normal. LA Size: Normal. Septum: PFO. Defect sz. Moderate Shunt: [id number] Ventricles: D-looped LV size: Normal. LV function: Normal. RV size: Normal. RV function: Normal. IVS: Motion: Normal. Defect Type/Size: None./None. Shunt: None. Grt Vessls: Normal. Aortic Root: Normal. MPA: Normal LPA: Normal. RPA: Normal. Aortic Arch: Unobstructed Ductus Arteriosus: 112 cm/sec Systm Veins: SVC: Normal. IVC: Normal. Pulm Veins: Visualized: 2/4. Connections: Normal. Pericardium: Normal Mitral Valve: Biphasic Structure: Normal. Stenosis: No. Regurgitation: No. Tricuspid Valve: Biphasic Structure: Normal. Stenosis:No. Regurgitation: No. Pulmonary Valve: 71 cm/sec Structure: Normal. Stenosis: No. Regurgitation: No. Aortic Valve: -- cm/sec Structure: Normal. Stenosis: No. Regurgitation: No. Pulsatility index: Ductal Arch: 2.97 Umb Artery: 1.19 cardiac rhythm: 1:1 AV conduction Rate: 132 bpm The attending physician has reviewed this study and has reviewed and/or edited this written report and agrees with it. FINDINGS: Signed 04/14/2025 2:32:00 PM Gris Rodriguez MD us Leah Bejarano MD CV ECHO PROCEDURES Final Res ult * US Ob Limited (03/31/2025 2:49 PM CDT) Fetus# Fetus1 VIEWPOINT Placenta Details anterior, Previa-no VIEWPOINT Presentation Vertex; Maternal left- low VIEWPOINT Fetus# Fetus2 VIEWPOINT Placenta Details anterior, Previa-no VIEWPOINT Presentation Vertex; Maternal right- high VIEWPOINT Anatomical Region Laterality Modality Abdomen N/A Ultrasound 03/31/2025 3:03 PM CDT Impressions 03/31/2025 4:29 PM CDT Twin 1: vertex, maternal left and low, normal bladder and AF volumes; UA Doppler PI is 1.13 (75'th 'centile); MCA 1.31 MoM Twin 2: vertex, maternal right and high, normal bladder and AF volumes; UA Doppler PI is 1.45 (99'th 'centile); MCA 1.37 MoM DA/MC twin IUP at 28 weeks + 3 days Twin 2 borderline growth and elevated UA Doppler PI No signs of TTTS or TAPS Narrative Procedure Note Polly Salamanca MD - 03/31/2025 IMPRESSION: Twin 1: vertex, maternal left and low, normal bladder and AFvolumes; UA Doppler PI is 1.13 (75'th 'centile); MCA 1.31 MoM Twin 2: vertex, maternal right and high, normal bladder and AFvolumes; UA Doppler PI is 1.45 (99'th 'centile); MCA 1.37 MoM DA/MC twin IUP at 28 weeks + 3 days Twin 2 borderline growth and elevated UA Doppler PI No signs of TTTS or TAPS us Leah Bejarano MD IMG OB US PROCEDURES Final R esult * (ABNORMAL) CBC without differential (03/16/2025 4:49 PM CDT) WBC 18.73(H) 3.80 - 9.90 K/cumm Hgb 11.2(L) 11.9 - 15.5 g/dL [facility] Hct 33.7(L) 35.6 - 45.5 % [facility] Plt 359 150 - 400 K/cumm [facility] MPV 9.9 9.1 - 12.3 fL [facility] RBC 3.93 3.90 - 5.20 M/cumm [facility] MCV 85.8 81.3 - 96.4 fL [facility] MCH 28.5 27.1 - 33.3 pg [facility] MCHC 33.2 32.3 - 35.7 g/dL [facility] RDW CV 13.1 11.1 - 14.9 % [facility] RDW SD 40.8 35.7 - 48.1 fL [facility] NRBC abs 0.00 0.00 - 0.01 K/cumm [facility] Blood 03/16/2025 4:49 PM CDT 03/16/2025 4:49 PM CDT us Leah Bejarano MD LAB BLOOD ORDERABLES Final R esult [facility] [address] [place] [address] * US Ob Detail Anatomy Single Or First Gestation (03/16/2025 2:27 PM CDT) Pathologist [facility] Fetus# Fetus1 VIEWPOINT Estimated Weight 876 g&grams VIEWPOINT Placenta Details anterior, Previa-no VIEWPOINT Presentation Vertex; Maternal left- high VIEWPOINT Fetus# Fetus2 VIEWPOINT Estimated Weight 796 g&grams VIEWPOINT Placenta Details anterior, Previa-no VIEWPOINT Presentation Vertex; Maternal right- low presenting VIEWPOINT Anatomical Region Laterality Modality Body N/A Ultrasound 03/16/2025 2:29 PM CDT Impressions 03/16/2025 3:39 PM CDT MC/DA twins - 26w 2d per CLARICE provided - the sizes are concordant and AGA The MVP is normal in both sacs and the bladder is visible in both twins. The UA Doppler PI is normal for Tw 1 and marginally elevated for Tw 2. Diastolic flow is noted in all waveforms. The MCA Doppler PSV is normal for both twins. No current sonographic evidence of TTTS or TAPS. Known velamentous cord insertion, Tw 2 Tw 2 is presenting and is VTX. Tw 1 is above Tw 2 and is VTX. [facility] visit to follow. Narrative Procedure Note Alli Ramos MD - 03/16/2025 IMPRESSION: MC/DA twins - 26w 2d per CLARICE provided - the sizes are concordant andAGA The MVP is normal in both sacs and the bladder is visible in both twins. The UA Doppler PI is normal for Tw 1 and marginally elevated for Tw 2.Diastolic flow is noted in all waveforms. The MCA Doppler PSV is normal for both twins. No current sonographic evidence of TTTS or TAPS. Known velamentous cord insertion, Tw 2 Tw 2 is presenting and is VTX. Tw 1 is above Tw 2 and is VTX. [facility] visit to follow. us Tamara Guerra MD IMG OB US PROCEDURES Final Result * N. gonorrhoeae/C. trachomatis amplification test (05/11/2017 9:05 PM CDT) Report Final Report: Negative for: Chlamydia trachomatis rRNA Negative for: Neisseria gonorrhoeae rRNA [facility] Urine 05/11/2017 9:05 PM CDT 05/11/2017 9:37 PM CDT Narrative [facility] - 05/11/2017 9:37 PM CDT Testing performed by the Gen-Probe [employer] APTIMA Combo 2 Assay. This nucleic acid amplification test (NAAT) detects ribosomal RNA (rRNA) from Chlamydia trachomatis and Neisseria gonorrhoeae using target capture,and Hand Tile Maker-Mediated Amplification (TMA). This test is approved by the [place] Food and Drug Administration for endocervical, vaginal, and male urethral swab specimens, in addition to male and female urine specimens. The performance characteristics for these specimen types have been verified by the [facility].The performance characteristics of this assay for pharyngeal and rectal specimens collected from cervical swab collection devices have been validated and verified by the [facility]. Verification studies support a lack of cross reactivity with other Neisseria species considered normal oropharyngeal bacterial sy. Rectal swab specimens containing excess stool may be inhibitory and result in false negatives for Chlamydia trachomatis or Neisseria gonorrhoeae. The performance characteristics of this test have not been evaluated in women or individuals less than 16 years of age. Jennifer Ferrell MD LAB MICROBIOLOGY - GEN ERAL ORDERABLES Final Result [facility] [place] [address] from Last 3 Months or Most Recently Relevant to Health Maintenance Insurance [facility] Care Teams Logistics Management Specialist Relationship Specialty Start Date End Date Unknown, Notinfile PCP - General 10/28/24 Beatrice Cho MD 05/14/17
--- OUTSIDE RECORDS SUMMARY | 2025-05-13 12:54 | XMS_ITS | Encounter Summary ---
Author Organization [facility] Healthcare Address [address] [place] [address] Care Team Providers Care Welt Stitcher Name Role Phone Beatrice Cho MD Unavailable [phone] Unknown, Notinfile Primary Care Provider Unavail able Reason for Referral * Diagnostic Imaging (Routine) - Closed Specialty Diagnoses / Procedures Referred By Corine t Referred To Contact Diagnoses Supervision of high-risk , third trimester Monochorionic diamniotic twin in third trimester Procedures US Ob Follow Up Jhoana Chin MD [address] [place] [id number] Phone: tel: fax: [facility] (All Locations) Referral ID Status Reason Start Date Expiration Date Visits Re quested Visits Authorized [id number] Closed 03/31/2025 04/30/2026 1 1 Reason for Visit * Diagnostic Imaging (Routine) - Closed Specialty Diagnoses / Procedures Referred By Corine angelo Referred To Contact Diagnoses Supervision of high-risk , third trimester Monochorionic diamniotic twin in third trimester Procedures US Ob Follow Up Jhoana Chin MD [address] [place] [address] Phone: tel: fax: [facility] (All Locations) Referral ID Status Reason Start Date Expiration Date Visits Re quested Visits Authorized [id number] Closed 03/31/2025 04/30/2026 1 1 Encounter Details Date Type Department Care Team (Latest Contact Info) Description 05/12/2025 12:29 PM CDT - 05/12/2025 11:59 PM CDT Hospital Encounter [facility] 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 [address] [place] [address] Anai Harmon MD [address] [facility] [address] [place] [address] documented as of this encounter Procedures Procedure Name Priority Date/Time Associated Diagnosis Comments US OB FOLLOW UP Schedule Routine, Read Routine (OP Routine) 05/12/2025 12:29 PM CDT Supervision of high-risk , third trimester Monochorionic diamniotic twin in third trimester documented in this encounter Results * US Ob Follow Up (05/12/2025 12:29 [...] body motion, tone and amniotic fluid volume. us Jhoana Chin MD IMG OB US PROCEDURES Yolanda l Result documented in this encounter Visit Diagnoses Diagnosis Supervision of high-risk , third trimester Monochorionic diamniotic twin in third trimester documented in this encounter Care Teams Welt Stitcher Relationship Specialty Start Date End Date Unknown, Notinfile PCP - General 10/28/24 Beatrice Cho MD 05/14/17 documented as of this encounter
--- OUTSIDE RECORDS SUMMARY | 2025-05-13 12:54 | XMS_ITS | Encounter Summary ---
Author Organization [facility] Address [address] [place] [address] Phone Care Team Providers Care Chief Bank Examiner Name Role Phone Beatrice Cho MD Unavailable [phone] Unknown, Notinfile Primary Care Provider Unavail able Reason for Visit * Reason Comments High Risk Gestation Encounter Details Date Type Department Care Team (Latest Contact Info) Description 05/12/2025 2:00 PM CDT Office Visit [facility] Maternal- Medicine [facility] [address] [place] [address] Monochorionic diamniotic twin in third trimester (Primary Dx); Supervision of high-risk , third trimester; Elevated blood pressure affecting in third trimester, antepartum Social History Tobacco Use Types Packs/Day Years [...] on file documented as of this encounter Last Filed Vital Signs Vital Sign Reading Time Taken Comments Blood Pressure 146/92 05/12/2025 2:28 PM CDT Pulse 88 05/12/2025 2:28 PM CDT Temperature 36.9 C (98.5 F) 05/12/2025 2:28 PM CDT Respiratory Rate 16 05/12/2025 2:28 PM CDT Oxygen Saturation 99% 05/12/2025 2:28 PM CDT Inhaled Oxygen Concentration - - Weight 103.8 kg (228 lb 12.8 oz) 05/12/2025 2:28 PM CDT Height 160 cm (5' 3) 05/12/2025 2:28 PM CDT Body Mass Index 40.53 05/12/2025 2:28 PM CDT documented in this encounter Functional Status documented as of this encounter Progress Notes * Dana Camejo MD - 05/12/2025 2:00 PM CDT Images from the original note were not included. [facility] Return Visit 05/12/2025 Jennifer Mcleod is a 24 y.o. at 34w3d who [...] compression socks and trying to keep her feetup. She continues to have carpal tunnel concerns. She is taking ASA. Objective: BP 146/92 Pulse 88 Temp 36.9 ??C (98.5 ??F) Resp 16 Ht 160 cm (5' 3) Wt 228 lb 12.8 oz (103.8 kg) LMP 09/07/2024 (Exact Date) SpO2 99% BMI 40.53 kg/m?? General: NAD Lungs: Normal work of breathing [...] motion, tone and amniotic fluid volume. Assessment/Plan: Jennifer Mcleod is a 24 y.o. at 34w3d with a complicated by monochorionic-diamniotic twin . Monochorionic diamniotic twin in third trimester Ultrasound today notable for normal growths with Twin 1 at the 13% and Twin 2 at 11%. This is theirlast growth ultrasound for this . Twin 2 continues to have elevated UA dopplers at >99%but the growth is normal and there is [...] 32 weeks - ongoing [x] Delivery at [id number] ([id number] if otherwise uncomplicated) - scheduled for 8/30 at 8 PM [x] Discuss mode of [...] mild range BP, recommend patient present to [facility] for preeclampsia labs, serial BP monitoring, and [...] epidural for labor/delivery. Given presentation to the [facility], recommend GBS collection. Patient is allergic to amoxicillin/penicillin, so recommend sensitivities. If patient is discharged, continue weekly visits and surveillance with consideration of increasing frequency of surveillance given elevated BP. Dana Camejo MD Waste Examiner Division of Maternal- Medicine and Ultrasound Department of Obstetrics and Gynecology [facility] 05/12/2025 My total encounter time on 05/12/2025 was 35 minutes which was spent in the activities documented inthe note. This includes time spent prior to the visit and after the visit in direct care of the patient. This time does not include time spent in any separately reportable services. documented in this encounter Miscellaneous Notes * Assessment & Plan Note - Dana Camejo MD - 05/12/2025 7:40 PM CDT Associated Problem(s): Supervision of high-risk , third trimester care with MFM, up to date. Discussed delivery consideration given our recommendation for epidural to facilitate breech extraction if needed for delivery. She has thought this over and accepts epidural for labor/delivery. Given presentation to the [facility], recommend GBS collection. Patient is allergic to amoxicillin/penicillin, so recommend sensitivities. * Assessment & Plan Note - Dana Camejo MD - 05/12/2025 7:38 PM CDT Associated Problem(s): Elevated blood pressure affecting in third trimester, antepartum History Mild range blood pressure in clinic on 05/12/2025 to 146/92. This is the patient's first mild range BP. Asymptomatic in clinic other than persistent significant lower extremity swelling. Plan [] Given new mild range BP, recommend patient present to [facility] for preeclampsia labs, serial BP monitoring, and consideration for admission/delivery pending results [] If patient discharged, recommend close antepartum monitoring with consideration for home BP monitoring given high risk for gHTN/preeclampsia * Assessment & Plan Note - Dana Camejo MD - 05/11/2025 1:11 PM CDT Associated Problem(s): Monochorionic diamniotic twin in third trimester Ultrasound today notable for normal growths with Twin 1 at the 13% and Twin 2 at 11%. This is theirlast growth ultrasound for this . Twin 2 continues to have elevated UA dopplers at >99%but the growth is normal and there is persistent forward diastolic flow throughout the waveforms. No evidence of TTTS/TAPS. BPPs were 05/08 for both twins. Plan [x] ASA 81 [...] 32 weeks - ongoing [x] Delivery at [id number] ([id number] if otherwise uncomplicated) - scheduled for 05/30 at 8 PM [x] Discuss mode of delivery - desires vaginal delivery, MFM recommended epidural on 04/28 which patient accepts documented in this encounter Plan of Treatment Upcoming Encounters Date Type Department Care Team (Late st Contact Info) Description 06/20/2025 Hospital Encounter [address] [address] Anai Harmon MD [address] [address] documented as of this encounter Visit Diagnoses Diagnosis Monochorionic diamniotic twin in third trimester- Primary Supervision of high-risk , third trimester Elevated blood pressure affecting in third trimester, antepartum documented in this encounter Care Teams Chief Bank Examiner Relationship Specialty Start Date End Date Unknown, Notinfile PCP - General 10/28/24 Beatrice Cho MD 05/14/17 documented as of this encounter
--- OUTSIDE RECORDS SUMMARY | 2025-05-13 12:54 | XMS_ITS | Clinical Summary ---
Author Organization [facility] Address [address] [place] [address] Care Team Providers Care Youth Development Professional Name Role Phone Beatrice Cho MD Primary Care Provider Source Comments [facility],non-owned Affiliates and Associated Physician Practices is amultiple site organization consisting of ambulatory clinics and hospital sitesin [place], [place], [place] and [place]. This disclosure is being madepursuant to the Care Everywhere program and may not contain all information available regarding this patient. Last updated 18.[facility] Allergies Active Allergy Reactions Criticality Noted Date Comments Amoxicillin 06/19/2017 Medications * Be aware that medications may not be up to date on this document. Alwaysverify current medications with the patient. ibuprofen (MOTRIN) 600 MG tablet Take 600 mg by mouth every 6 hours as needed for Pain Active albuterol HFA (PROVENTIL;SOHAIL CHINTAN;PROAIR) 108 (90 BASE) MCG/ACT inhalerIndicatio ns:Acute bronchitis, unspecified organism Inhale 2 puffs by mouth every 4 hours as needed for Wheezing 1 Inhaler 8 Active benzonatate (TESSALON) 100 MG capsuleIndicatio ns:Cough Take 1 capsule by mouth 3 times daily as needed for Cough Reasons: Cough 30 capsule 8 Active Active Problems Problem Noted Date Diagnosed Date Chronic headache 06/18/2017 Social History Tobacco Use Types Packs/Day Years Used Date Smoking Tobacco: Never Smokeless Tobacco: Never Comments No Sex and Gender Information Value Date Recorded Sex Assigned at Not on file Legal Sex Female 9:35 AM [employer] Gender Identity Not on file Sexual Orientation Not on file Last Filed Vital Signs Vital Sign Reading Time Taken Comments Blood Pressure 102/66 12/15/2017 3:54 PM CDT Pulse 103 12/15/2017 3:54 PM CDT Temperature 36.9 C (98.4 F) 12/15/2017 3:54 PM CDT Respiratory Rate 16 12/15/2017 3:54 PM CDT Oxygen Saturation 96% 12/15/2017 3:54 PM CDT Inhaled Oxygen Concentration - - Weight 72.6 kg (160 lb) 12/15/2017 3:54 PM CDT Height 157.5 cm (5' 2) 12/15/2017 3:54 PM CDT Body Mass Index 29.26 12/15/2017 3:54 PM CDT Plan of Treatment Health Maintenance Due Date Last Done Comments HIV SCREENING 2015 HPV VACCINE (1 - 3-dose series) 2015 CHLAMYDIA/GONORRHEA SCREENING 2016 HEPATITIS C SCREENING 11/01/2018 DTAP/TDAP/TD VACCINES (1 - Tdap) 2019 HEPATITIS B VACCINE (1 of 3 - 19+ 3-dose series) 2019 COVID-19 VACCINE (1 - 2023-2 5 season) 2024 DEPRESSION SCREENING 10/01/2024 INFLUENZA VACCINE (#1) 2025 ZOSTER VACCINE (1 of 2) 2050 HIB VACCINE Aged Out No longer eligi ble based on patient's age to complete this topic MENINGOCOCCAL (Group B) VACC INE SHARED DECISION-MAKING Aged Out No longer eligibl e based on patient's age to complete this topic MENINGOCOCCAL GROUPS A/C/Y/W VACCINE Aged Out No longer eligible b ased on patient's age to complete this topic PNEUMOCOCCAL VACCINE Aged Out No long er eligible based on patient's age to complete this topic Insurance [facility] Care Teams Youth Development Professional Relationship Specialty Start Date End Date Beatrice Cho MD [address] [place] [address] PCP - General Pediatrics 05/15/17
--- OUTSIDE RECORDS SUMMARY | 2025-05-13 12:54 | XMS_ITS | Encounter Summary ---
Author Organization [facility] Address [address] [place] [address] Care Team Providers Care Ict Programmer Name Role Phone Beatrice Cho MD Unavailable [phone] Unknown, Notinfile Primary Care Provider Unavail able Encounter Details Date Type Department Care Team (Latest Contact Info) Description 05/05/2025 Results Follow-Up [facility] [address] [place] [address] Dana Camejo MD [address] [id number] Protein / creatinine ratio, urine, random, Comprehensive metabolic panel, CBC without differential, eGFR Social History Tobacco Use Types Packs/Day Years Used Date Smoking Tobacco: Never Smokeless Tobacco: Never Alcohol Use Standard Drinks/Week Comments Yes 0 (1 standard drink = 0.6 oz pur e alcohol) AUDIT-C Answer Date Recorded Q1: How often do you have a drink containing alcohol? Never 03/16/2025 Q2: How many drinks containi ng alcohol do you have on a typical day when you are drinking? Patient does not drink Frequency of Binge Drinking Not on file 03/01 Personal Safety Answer Date Recorded Have you ever been in or are you currently in a harmful physical or emotional relationship or is someone making you feel afraid or unsafe? Denies 12/01/2024 Estimated Date of Delivery Comme nts Yes 06/20/2025 Based on Ultraso und Sex and Gender Information Value Date Recorded Sex Assigned at Not on file Legal Sex Female 1:07 PM CDT Gender Identity Not on file Sexual Orientation Not on file documented as of this encounter Plan of Treatment Upcoming Encounters Date Type Department Care Team (Late st Contact Info) Description 06/20/2025 Hospital Encounter [address] [address] Anai Harmon MD [address] [address] documented as of this encounter Visit Diagnoses Not on filedocumented in this encounter Care Teams Ict Programmer Relationship Specialty Start Date End Date Unknown, Notinfile PCP - General 10/28/24 Beatrice Cho MD 05/14/17 documented as of this encounter
--- OUTSIDE RECORDS SUMMARY | 2025-05-13 12:54 | XMS_ITS | Encounter Summary ---
Author Organization [facility] Healthcare Address [address] [place] [address] Care Team Providers Care Test Lead Name Role Phone Beatrice Cho MD Unavailable [phone] Unknown, Notinfile Primary Care Provider Unavail able Reason for Visit * Reason Comments Hypertension Encounter Details Date Type Department Care Team (Latest Contact Info) Description 05/12/2025 4:30 PM CDT - 05/12/2025 7:30 PM CDT Hospital Encounter [facility] [address] [place] [address] Anai Harmon MD [address] [address] Jennifer Felton MD [address] [facility] [phone] [place] [address] Discharge Disposition: Discharge to home or self [...] Mass Index 41.24 05/12/2025 4:42 PM CDT documented in this encounter Functional [...] Destination Discharge to home or self care Private [facility] documented in this encounter H&P Notes * Diego Barahona MD - 05/12/2025 7:06 PM CDT Obstetrics H&P Chief Complaint: 3+ BLE swelling Estimated Date of Delivery: 06/20/25 Provider: SAMAN HPI: Jennifer Mcleod is a 24 y.o. female at 34w3d gestation, dated by L=1st Her is complicated by monochorionic-diamniotic twin . She denies vaginal bleeding and leakage of [...] extremity swelling; this is her primary concern. No current CABALLERO or visual changes. OB History Para Term AB Living 1 0 0 0 0 0 SAB IAB Ectopic Multiple Live Births 0 0 0 0 0 # Outcome Date GA Lbr James/2nd Weight Sex Type Anes PTL Lv 1 Current Past Medical History: Diagnosis Date Toxic shock syndrome (HCC) Chronic hypertension: No Diabetes: No Asthma: No Past Surgical History: Procedure Laterality Date MYRINGOTOMY W/ TUBES TONSILLECTOMY Social History Tobacco Use Smoking status: Never Smokeless tobacco: Never Substance and Sexual Activity Drug use: Yes Frequency: 7.0 times per week Types: Marijuana Sexual activity: Yes Partners: Male Alcohol Use: Unknown (05/12/2025) AUDIT-C Frequency of Alcohol Consumption: Not on file Average Number of Drinks: Patient does not drink Frequency of Binge Drinking: Not on file Support System: Not addressed Safe at home: Yes family history includes No Known Problems in her father and mother. Family history of bleeding or clotting disorders: No Family history of defects, genetic disorders, or developmental delay: No Allergies Allergen Reactions Amoxicillin Rash HOME MEDICATIONS: aspirin 81 mg enteric coated tablet ferrous sulfate 325 mg (65 mg of elemental iron) tablet ondansetron ODT (ZOFRAN-ODT) 8 mg disintegrating tablet Review of Sys: Negative except per HPI Vitals: Temp: [36.8 ??C (98.2 ??F)-36.9 ??C (98.5 ??F)] 36.8 ??C (98.2 ??F) Pulse: [85-112] 93 Resp: [16-18] 18 BP: (118-146)/(63-92) 123/69 Physical Exam: General: NAD, mood appropriate Cardiovascular: Regular rate and rhythm Pulmonary: Clear to ausculation bilaterally Abdomen: Gravid, non-tender Extremities: 3+ edema bilaterally Speculum Exam: deferred Cervix: / / deferred Monitoring: Baseline: 125 bpm, Variability: Moderate, Accelerations: Present and Decelerations: None Uterine Activity: No contractions seen on toco Interpretation: Reactive Monitoring: Baseline: 130 bpm, Variability: Moderate, Accelerations: Present and Decelerations: None Labs: Lab Results Component Value Date ABORH A Positive 05/12/2025 IDCOOMB Negative 05/12/2025 [id number] Nonreactive 04/28/2025 LABRPR Nonreactive 04/28/2025 VZVIGG Nonreactive (A) 04/28/2025 Assessment and Plan Jennifer Mcleod is a 24 y.o. female at 34w3d who presented with complaints of swelling R/O Pre Eclampsia: -No e/o Pre Eclampsia, BP normotensive -No CABALLERO or visual changes - 3+ swelling BLE -No RUQ tenderness - CBC: unremarkable - CMP: unremarkable - UPC 0.01 - Pre E precautions given FWB: Reactive NST X2 Twins Patient to continue taking medications as prescribed, follow up with M Strict return precautions given. Patient had no further questions, verbalized understanding of discharge plan/instructions and was DCd home in Stable condition. Plan discussed with Dr. Jun Friedman NP 05/12/25 M Fellow Attestation I have discussed Jennifer Mcleod with the above provider on 05/12/2025. I have reviewed the treatment plan and recommendations. I agree with the findings and the plan of care as documented in the note with the following addendum: Briefly, this is a 24 y.o. at 34w3d with complicated by mo/di twin gestation. Presented to [facility] after mild range BP in clinic in setting of worsening LE edema, concerning for preeclampsia. Asymptomatic in [facility]. Normotensive in triage. PreE labs wnl, P:C 0.1. 3+ LE pitting edema up to knees, stable per patient. Would rule in for gHTN with another mild range BP. Suspect brewing hypertensive disorder of with risk factor of mo/di twins. Discussed with patient. All questions answered to patient's satisfaction. F/u appt scheduled for 05/19. Libby Barahona MD Maternal Medicine Fellow, PGY-5 Cosigned by Jennifer Felton MD at 05/12/2025 8:47 PM CDT Associated attestation - Jennifer Felton MD - 05/12/2025 8:47 PM CDT I agree with the medical care and documentation provided. I did not see the patient. Jennifer Felton MD [employer] Division of Maternal- Medicine documented in this encounter Nursing Notes * Adriana Nunez RN - 05/12/2025 7:37 PM CDT PT arrived in [facility] for rule out PreE. complicated by Gallo twins. PT denies LOF, bleeding, or regular contractions. Endorses good FM. Denies CABALLERO, vision changes, or RUQ pain. VS WNL and Reactive NST Urine Dip and labs WNL. PT signed out with Jun LUGO Discharged in stable condition with no questions after given [facility] precautions. documented in this encounter Plan of Treatment Upcoming Encounters Date Type Department Care Team (Late st Contact Info) Description 06/20/2025 Hospital Encounter [facility] [address] [place] [address] Aani Harmon MD [address] [address] Pending Results Name Type Priority Associated Diagnoses Date /Time Group B streptococcal culture Vaginal/Rectal Microbiology Routine 5:27 PM CDT Scheduled Orders Name Type Priority Associated Diagnoses Orde r Schedule Group B streptococcal culture Vaginal/Rectal Microbiology Routine Once for 1 Occurrences starting 05/12/2025 until 05/12/2025 documented as of this encounter Procedures Procedure Name Priority Date/Time Associated Diagnosis Comments EGFR STAT 05/12/2025 5:27 PM CDT PROTEIN / CREATININE RATIO, URINE, RANDOM STAT 05/12/2025 5:27 PM CDT CBC WITHOUT DIFFERENTIAL STAT 05/12/2025 5:27 PM CDT TYPE AND SCREEN STAT 05/12/2025 5:27 PM CDT URIC ACID STAT 05/12/2025 5:27 PM CDT COMPREHENSIVE METABOLIC PANEL STAT 05/12/2025 5:27 PM CDT POCT URINALYSIS (CLINITEK) Routine 05/12/2025 5:01 PM CDT documented in this encounter Results * eGFR (05/12/2025 5:27 PM CDT) [...] CDT 05/12/2025 5:46 PM CDT Jacquie Friedman PROP DRAWER LAB BLOOD ORDERABLES Fin al Result Performing Organization Address [facility] Co de Phone Number [facility] Department [place] [address] * (ABNORMAL) CBC without differential (05/12/2025 5:27 PM CDT) Pathologist [facility] WBC 12.53(H) 3.80 - 9.90 K/cumm Hgb 10.8(L) 11.9 - 15.5 g/dL [facility] Hct 32.5(L) 35.6 - 45.5 % [facility] Plt 324 150 - 400 K/cumm [facility] MPV 11.0 9.1 - 12.3 fL [facility] RBC 4.15 3.90 - 5.20 M/cumm [facility] MCV 78.3(L) 81.3 - 96.4 fL [facility] MCH 26.0(L) 27.1 - 33.3 pg [facility] MCHC 33.2 32.3 - 35.7 g/dL [facility] RDW CV 13.6 11.1 - 14.9 % [facility] RDW SD 38.9 35.7 - 48.1 fL [facility] NRBC abs 0.00 0.00 - 0.01 K/cumm [facility] Blood 05/12/2025 5:27 PM CDT 05/12/2025 5:47 PM CDT Jacquie Friedman PROP DRAWER LAB BLOOD ORDERABLES Fin al Result Performing Organization Address [facility] Co de Phone Number [facility] Department [place] [address] * (ABNORMAL) Comprehensive metabolic panel (05/12/2025 5:27 PM CDT) Pathologist [facility] Sodium 140 135 - 145 mmol/L Potassium, pl 4.3 3.3 - 4.9 mmol/L [facility] Chloride 110 97 - 110 mmol/L [facility] CO2 22 22 - 32 mmol/L [facility] Anion gap 8 2 - 15 mmol/L [facility] BUN 6 6 - 25 mg/dL [facility] Creatinine 0.54(L) 0.60 - 1.10 mg/dL [facility] Glucose 82 70 - 199 mg/dL [facility] Comment: Interpretive Data Fasting glucose >/= 126 [...] classification and Diagnosis of Diabetes Diabetes Care 202; 46: S19-S40. Current interpretive data was last revised 2022. Calcium 9.7 8.5 - 10.3 mg/dL [facility] Bilirubin, total 0.2 0.1 - 1.2 mg/dL [facility] Protein, pl 5.8(L) 6.5 - 8.5 g/dL [facility] Albumin 2.9(L) 3.5 - 5.0 g/dL [facility] Alk phos 187(H) 40 - 130 Units/L [facility] ALT 16 7 - 45 Units/L [facility] AST 21 10 - 45 Units/L [facility] Blood 05/12/2025 5:27 PM CDT 05/12/2025 5:46 PM CDT Jacquie Friedman NP LAB BLOOD ORDERABLES Fin al Result [facility] Department [place] [address] * Type and screen (05/12/2025 5:27 PM CDT) ABO Rh A Positive Megha, indirect Negative [facility] Blood 05/12/2025 5:27 PM CDT 05/12/2025 5:37 PM CDT Narrative [facility] - 05/12/2025 6:25 PM CDT Has the patient had Daratumumab or Isatuximab in the past 6 months?->Unknown Jacquie Friedman PROP DRAWER LAB BLOOD BANK TEST ORDE KAUR Final Result Performing Organization Address [facility] de Phone Number [facility] [place] [address] * Uric acid (05/12/2025 5:27 PM CDT) Pathologist [facility] Uric acid 4.7 2.5 - 7.0 mg/dL Blood 05/12/2025 5:27 PM CDT 05/12/2025 5:46 PM CDT Jacquie Friedman PROP DRAWER LAB BLOOD ORDERABLES Fin al Result Performing Organization Address [facility] de Phone Number [facility] [place] [address] * Protein / creatinine ratio, urine, random (05/12/2025 5:27 PM CDT) Pathologist [facility] Protein, ur, quant 25.8 mg/dL Comment: Interpretive Data No reference range established. Current interpretive data was last revised 2019. Creatinine Ur 209.2 mg/dL [facility] Comment: Interpretive Data No reference range established. Current interpretive data was last revised 2019. Protein/creatinin e ratio 123.3 0.0 - 180.0 mg/g CR [facility] Urine 05/12/2025 5:27 PM CDT 05/12/2025 5:46 PM CDT Result [facility] Jacquie Friedman PROP DRAWER LAB URINE ORDERABLES Fin al Result Performing Organization Address [facility] de Phone Number [facility] [place] [address] * (ABNORMAL) POCT urinalysis (Clinitek) (05/12/2025 5:01 PM CDT) Color, ur, POC Yellow Yellow Clarity, UA, POC Clear Clear [facility] Glucose, ur, POC Negative Negative [facility] Bilirubin, ur, POC Negative Negative [facility] Ketones, ur, POC 2+(A) Negative [facility] Specific gravity, ur, POC 1.025 1.010 - 1.025 [facility] Blood, ur, POC Negative Negative [facility] pH, ur, POC 7.0 [facility] Comment: Interpretive Data Urine pH is affected by diet, medications, systemic acid-base disturbances, and renal tubular function. pH may affect urinary stone formation. For example, urine pH below 6.0 may help reduce the tendency for calcium phosphate stones and pH greater than 6.0 may reduce the tendency for uric acid stone formation. Source: [employer]. Last Revised Date: 10-11-2017 Protein, ur, POC 1+(A) Negative [facility] Urobilinogen, ur, POC 0.2 mg/dL mg/dL [facility] Nitrites, ur, POC Negative Negative [facility] Leukocyte esterase, ur, POC Negative Negative [facility] Urine 05/12/2025 5:01 PM CDT 05/12/2025 5:01 PM CDT Anai Harmon MD LAB POCT ORDERABLES - DEVICE Final Result [facility] Department [place] [address] documented in this encounter Visit Diagnoses Not on filedocumented in this encounter Orders Lab Orders Without Results Count Last Ordered D ate First Ordered Date POCT URINALYSIS (CLINITEK) 1 05/12/2025 Nursing Count Last Ordered Date First Orde red Date VITAL SIGNS 1 05/12/2025 Discharge Count Last Ordered Date First Orde red Date DISCHARGE PATIENT 1 05/12/2025 documented in this encounter Care Teams Test Lead Relationship Specialty Start Date End Date Unknown, Notinfile PCP - General 10/28/24 Beatrice Cho MD 05/14/17 documented as of this encounter
== END 2025-05-13 12:52 | disposition home or self-care (01) ==
LOC: ANHAUDASC 12:51
PROVIDERS: Visit Provider Otolaryngology
DX: O99.892 Other specified diseases and conditions complicating childbirth (principal); H72.92 Unspecified perforation of tympanic membrane, left ear; H90.0 Conductive hearing loss, bilateral; H74.8X1 Other specified disorders of right middle ear and mastoid; H61.21 Impacted cerumen, right ear; Z3A.35 35 weeks gestation of pregnancy
CPT/HCPCS: 92557; 92567